=== PATIENT | male | born 1980 | race Caucasian/White ===

== ENCOUNTER 2023-09-24 02:36 | Inpatient (IN) | payer OTHER, SELFPAY ==
[2023-09-23 23:08] VITALS: BP 109/67
[2023-09-23 23:28] VITALS: BMI 19.6
[2023-09-23 23:38] VITALS: BP 109/65
[2023-09-23] MEDS: NSS 1000 IV (23:51)
[2023-09-23 23:52] VITALS: BP 106/65
[2023-09-23 23:55] LABS: % Basophils 0.3 % (0-2); % Eosinophils 0.4 % (0-6); % Immature Granulocytes 0.9 % (0-0.5); % Lymphocytes 9.4 % (20.5-51.1); % Monocytes 3.5 % (1.7-9.3); % Neutrophils 85.5 % (42.2-75.2); Absolute Eosinophils 0.1 10^3/uL (0-0.7); Absolute Immature Granulocytes 0.1 10^3/uL (0-0.05); Absolute Lymphocytes 1.3 10^3/uL (1.2-3.4); Absolute Monocytes 0.5 10^3/uL (0.1-0.6); Absolute Neutrophils 11.8 10^3/uL (1.4-6.5); Hematocrit 31.6 % (39.0-52.0); Hemoglobin 10.7 g/dL (13.0-18.0); Mean Corp Hgb Conc. 33.9 g/dL (33.0-37.0); Mean Corpuscular Hgb 25.1 pg (27.0-31.0); Mean Corpuscular Volume 74.2 fL (80.0-94.0); Mean Platelet Volume 9.5 fL (7.4-10.4); Nucleated Red Blood Cells % 0 % (-); Platelet Count 184 10^3/uL (130-400); Red Blood Cell Count 4.26 10^6/uL (4.70-6.10); Red Cell Dist. Width 16.3 % (11.5-14.5); White Blood Cell Count 13.8 10^3/uL (4.8-10.8)
[2023-09-24] VITALS (11 sets, daily range): BP systolic 100–117; BP diastolic 56–72; BMI 19.8
--- NOTE | 2023-09-24 | ED.GENMED ---
History of Present Illness
General
Chief Complaint: Skin Problem
Source: patient
Exam Limitations: none
Time Seen by Provider: 09/23/23 23:22
Travel History
Have you had any contact with someone who has COVID-19?: No
Do you have any symptoms of coronavirus? Fever > 100 degrees, chills, cough, shortness of breath, sore throat, loss of taste or smell, muscle aches, or headache?: No
History of Present Illness
History of Present Illness:
This is a 43 year old male that comes in with c/o left leg infection. States that he started with redness on the left lower leg and this has increased. States that this started about 10 days ago. States that he thinks he had a fever in alf.
States that he had some chest pain, occasional SOB. abd pain, nausea, vomiting, diarrhea, headache, dizziness, urinary burning. Denies any chills.
Past History
Past History
ED Past Medical History: Other (Fentanyl abuse)
ED Past Surgical History: None
Social History
Tobacco: Former smoker
Alcohol: None
Drug: IVDA and Other (Snorting)
Personal: Single
Living: alf
Review of Systems
Review of Systems
All Other Systems: ROS reviewed and negative except as documented in HPI and ROS
Constitutional: Reports fever (QUESTIONABLE UNABLE to take temp); Denies chills
EENT: Reports no symptoms
Respiratory: Reports trouble breathing (occasionally); Denies cough
Cardiac: Reports chest pain
ABD/GI: Reports abdominal pain, nausea, vomiting and diarrhea
: Reports dysuria; Denies frequency or urgency
Musculoskeletal: Reports other (Left leg pain)
Skin: Reports other (Redness of the left leg)
Neurological: Reports dizzy and headache
Psychiatric: Reports no symptoms
Phy Exam
General Physical Exam
General Presentation: no apparent distress
General age: appears stated age
General Skin: warm and dry
General Habitus: normal
General Mental: alert
General Hydration: appears well hydrated
ENT Exam
ENT Exam: TM's normal, pharynx normal and neck supple
Eye Exam
Eye Exam: EOMI
Cardiovascular Exam
Cardiovascular Exam: regular rate/rhythm, no murmur and normal peripheral pulses
Pulmonary Exam
Pulmonary Exam: lungs clear, no respiratory distress, no rales, chest non tender, no crackles, no rhonchi, no wheezing and no cough
Gastrointestinal Exam
Gastrointestinal Exam: normal bowel sounds, soft, no organomegaly, no pulsatile mass, non distended and tender (Generalized tenderness with palpation)
Musculoskeletal Exam
Musculoskeletal Exam: full ROM and edema (of the left leg)
Skin Exam
Skin Exam: normal color, warm/dry, no petechia and other (Open sores on the left lower let at different stages of healing. Redness on the left lower leg with increased warmth, Up to the knee with posterior redness and red streak on the medial aspect
of the thigh. )
Psychiatric Exam
Psychiatric Exam: normal mood/affect
Course
Orders/Labs/Results
Orders:
Orders
09/23/23 23:17
Cardiac Monitoring- Treatment ONCE
IV Insert/Care/Rem.- Treatment PRN
09/23/23 23:33
Complete Blood Count/With Diff Urgent
Comprehensive Metabolic Panel Urgent
Lactic Acid Q4H
Comment: ON ICE, CANCEL 2ND ORDER IF FIRST LACTIC ACID LEVEL <2
Blood Culture Q30M
VIJAY Source: Blood/Venous
Specimen Description:
Comment: FROM 2 SEPARATE SITES
09/23/23 23:48
0.9% Sodium Chloride 1000 ml [Nss] 1,000 ml IV BOLUS
09/24/23 00:00
US Periph Venous LOWER Ext LT Urgent
Comment:
Reason For Exam: Swellig pain
09/24/23 00:01
Piperacillin/Tazo 3.375 Gram [Zosyn] 3.375 gram in 50 ml IV NOW
Vancomycin 1 Gram/200 ml [Vancocin] 1 gram in 200 ml IV NOW
09/24/23 00:03
Electrocardiogram (*1) Urgent
Reason for Study: Chest Pain
EKG- Treatment ONCE
Urinalysis Reflex To Culture Urgent
Pantoprazole [Protonix IV] 40 mg IV NOW STA
09/24/23 00:55
Urine Osmolality Random [Osmolality, Random Urine] Urgent
Urine Sodium Urgent
09/24/23 00:56
Troponin I Urgent
Blood Culture Q30M
VIJAY Source: Blood/Venous
Specimen Description:
Comment: FROM 2 SEPARATE SITES
09/24/23 01:08
Admit/Transfer Patient As Directed
Co-Sign Provider:
Level of Care: Inpatient admission
Assign to:: Medical/Surgical
Physician / Group: Regan
Diagnosis: Cellulitis, Hyponatremia
Reason for Hospitalization: Cellulitis, Hyponatremia
Expected length of stay greater than two midnights?: Yes
ELOS- Estimated Length of Stay in days: 2
I certify the patient meets the requirements for IP care: Yes
09/24/23 01:09
Code Status As Directed
Resuscitation Status: Full Code
09/24/23 01:21
CXR2 [CR Chest - 2 Views ] Urgent
Comment:
Reason For Exam: Abnormal lung sounds
09/24/23 01:38
MRSA Screen Routine
VIJAY Source: Nose
Specimen Description:
09/24/23 03:30
Lactic Acid Q4H
Comment: ON ICE, CANCEL 2ND ORDER IF FIRST LACTIC ACID LEVEL <2
Abnormal Lab Results
09/23/23
23:33
WBC 13.8 H 10^3/uL
(4.8-10.8)
RBC 4.26 L 10^6/uL
(4.70-6.10)
Hgb 10.7 L g/dL
(13.0-18.0)
Hct 31.6 L %
(39.0-52.0)
MCV 74.2 L fL
(80.0-94.0)
MCH 25.1 L pg
(27.0-31.0)
RDW 16.3 H %
(11.5-14.5)
Abs Immat Gran (auto) 0.1 H 10^3/uL
(0-0.05)
Absolute Neuts (auto) 11.8 H 10^3/uL
(1.4-6.5)
Immature Gran % 0.9 H %
(0-0.5)
Neutrophils % 85.5 H %
(42.2-75.2)
Lymphocytes % 9.4 L %
(20.5-51.1)
Sodium 125 L mmol/L
(135-145)
Chloride 93 L mmol/L
(98-107)
BUN 23 H mg/dl
(9-20)
Glucose 114 H mg/dl
(70-99)
AST 66 H U/L
(17-59)
ALT 75 H U/L
(0-50)
Albumin 3.4 L g/dl
(3.5-5.0)
09/23/23 23:33
09/23/23 23:33
Leukocytosis, H/H low, Anemia, Hyponatremia, chloride low. Dehydration. Glucose nonfasting. AST/ALT elevation. lactic acid 1.8, Troponin <0.012.
Vital Signs
Initial and Last Documented VS:
Initial Vital Signs
Temp Pulse Resp BP
98.5 F 85 16 109/67
09/23/23 23:08 09/23/23 23:08 09/23/23 23:08 09/23/23 23:08
Last Documented Vital Signs
Temp Pulse Resp BP Pulse Ox
98.5 F 91 19 117/64 100
09/23/23 23:08 09/24/23 01:30 09/24/23 01:30 09/24/23 01:30 09/23/23 23:52
MDM/Problems Addressed
Differential Diagnosis Includes:
Cellulitis, DVT
MDM/Problems Addressed:
This is a 43 year old male that comes in with c/o left leg pain. States that he started about redness of the left leg that has gotten worse.
Will get labs US and explained that he needed to be admitted. Hospitalist notified.
Chronic conditions affecting care:
IV drug use,
Acute Exacerbation and/or Progression of Chronic Illness:
NA
*Radiology
Radiology exam reviewed: preliminary read by ED provider (Chest- negative for active disease) and other (US- Negative for DVT)
*Pulse Oximetry
Patient hypoxic: no
*EKG
Interpreted by ED Provider?: Yes
Heart Rate: 84
Rate: normal
Rhythm: sinus
[place]: normal axis
Interval: normal interval
QRS Pattern: normal QRS
Ischemia: no ischemia
*Automatic Quilling Machine Operator Interpretation
Rate: normal
Heart Rate: 83
*Critical Care Note
Total Time (30-74mins, 75-104mins- exclusive of procedures): Not Applicable
ED Attending Note
-
Portions of this chart may have been created with voice recognition software.� Occasional wrong word or��sound alike� substitutions may have occurred due to the inherent limitations of voice recognition software.
Discharge Plan
Departure
Patient Disposition: Admit
Date of Disposition: 09/24/23
Time of Disposition: 00:18
Admit to: Med/Surg
Presentation/result/management discussed w/ accepting MD/DO: Hospitalist
Patient with high blood pressure during this ER visit?: No
Condition: Good
Discharge Problem:
Cellulitis of left leg, Acute hyponatremia
Interventions
Interventions:
*Risk Screen - Suicide Last Done: 09/23/23 23:08
*General Assessment Last Done: 09/23/23 23:08
*Neglect/Abuse Screening Last Done: 09/23/23 23:08
ED- Fall Risk Assessment Last Done: 09/23/23 23:08
*ED COVID-19 Vaccine History Last Done: 09/23/23 23:08
ED-Skin Assessment Last Done: 09/23/23 23:30
[2023-09-24 00:01] LABS: Lactic Acid 1.8 mmol/L (0.7-2.0)
[2023-09-24 00:02] LABS: ALT (SGPT) 75 U/L (0-50); AST (SGOT) 66 U/L (17-59); Albumin 3.4 g/dl (3.5-5.0); Alkaline Phosphatase 116 U/L (38-126); Blood Urea Nitrogen 23 mg/dl (9-20); Calcium 8.4 mg/dl (8.4-10.2); Carbon Dioxide 22 mmol/L (22-30); Chloride 93 mmol/L (98-107); Estimated Creatinine Clearance 110 ml/min; Glucose 114 mg/dl (70-99); Potassium 3.6 mmol/L (3.5-5.1); Sodium 125 mmol/L (135-145); Total Bilirubin 0.7 mg/dl (0.2-1.3); Total Protein 7.6 g/dl (6.3-8.2); eGFR > 60.00
[2023-09-24] MEDS: ZOSYN 50 IV (00:58)
[2023-09-24] MEDS: PROTONIX IV 40 MG IV (01:01)
--- NOTE | 2023-09-24 01:16 | HPS.HSE ---
Family Physician
-
Family Physician: [facility]
Chief Complaint
-
LLE pain, swelling, redness.
History of Present Illness
Patient is a 43y M with PMH significant for substance abuse who presents to ED complaining of LLE pain, swelling and redness. Patient states that symptoms have been present for about 2 weeks and have been steadily worsening in that time. he is
currently incarcerated and was brought to the ED this evening for further evaluation. Patient states that he has had intermittent fevers / chills, N/V/D, diaphoresis, etc. He has a history of IVDA, but denies injecting into the LLE.
He denies any known history of MRSA infection.
Patient denies any other known chronic health issues.
Medical History
Past Medical History
Past Medical History: Reports Other
Additional Past Medical History:
Substance Abuse
Past Surgical History: Reports None and Other
Social History
Tobacco: Smoker (/ ppd. Approx 10 pack years total use.)
Alcohol: None
Drug: IVDA (Last IV use was about 30 days ago. UE injections. No LLE injections.) and Other (Last use overall was nasal fentanyl about 2 weeks ago.)
Living: Assisted
Family History
Family History: Not pertinent
Allergies / Home Medications
Allergies reflects when Allergies were last updated in [facility].
Home Medications with original date entered in [facility]
Allergy/Medication List:
Allergies
Allergy/AdvReac Type Severity Reaction Status Date / Time
No Known Allergies Allergy Unverified 09/23/23 22:58
Home Medications
buprenorphine 8 mg-naloxone 2 mg sublingual tablet 2 tab sublingual DAILY 09/23/23
Review of Systems
-
History Source: Patient
A 12 point ROS was completed and negative except as noted: Yes
Constitutional: Reports Fever, Fatigue and Chills
EENT: Denies Sore Throat
Respiratory: Denies Cough or Trouble Breathing
Cardiac: Denies Chest Pain or Palpitations
Abdomen/GI: Reports Nausea, Vomiting and Diarrhea; Denies Abdominal Pain
: Denies Dysuria or Frequency
Musculoskeletal: Reports Joint Pain, Joint Swelling and Edema
Skin: Reports Other (Redness / Pain)
Neurological: Denies Dizzy or Headache
Psych: Denies Depression or Anxiety
Physical Exam
Vital Signs
Vital Signs
Temp Pulse Resp BP Pulse Ox
98.5 F 85 16 109/67 100
09/23/23 23:08 09/23/23 23:08 09/23/23 23:08 09/23/23 23:08 09/23/23 23:28
Physical Exam
General: Other (43y M in no acute distress. Appears older than stated age.)
HEENT: Moist mucous membranes and Other (Poor dentition.)
Respiratory: Other (Few bibasilar rales.)
Cardiac: S1/S2, Regular Rhythm and Murmur (II/ OMA)
GI: Soft, Non Tender, Non Distended and Normal Bowel Sounds
Musculoskeletal: Other (Erythema, induration, increased warmth and tenderness LLE circumferential around lower leg wth lymphangitis into the L thigh / groin. No evident abscess / fluctuance.)
Skin: Other (Scattered crusted lesions. Small, tender abscess R lateral / proximal thigh without bleeding or discharge.)
Neuro: AO x 3
Laboratory Results
-
09/23/23 23:33
09/23/23 23:33
Laboratory Results
Lactic Acid 1.8 mmol/L (0.7-2.0) 09/23/23 23:33
Total Bilirubin 0.7 mg/dl (0.2-1.3) 09/23/23 23:33
AST 66 U/L (17-59) H 09/23/23 23:33
ALT 75 U/L (0-50) H 09/23/23 23:33
Alkaline Phosphatase 116 U/L (38-126) 09/23/23 23:33
Impression/Plan
-
A/P: Patient is a 43y M with PMH significant for substance abuse who presents to ED complaining of LLE pain, swelling and redness for 2 weeks.
LLE Cellulitis
- Admit for further evaluation and treatment.
- Confluent erythema with induration, warmth and lymphangitis without discrete collection / abscess.
- IV abx with Vanco given IVDA / MRSA risks.
- Check MRSA swab.
- Follow for clinical improvement.
- Encourage avoidance of IVDA in the future.
Hyponatremia
- ? etiology. No prior values to compare, so cannot comment on acuity.
- Check urine studies, CXR, TFTs, etc.
- Fluid restriction for now and follow for changes.
- Consider Nephrology evaluation if Na levels decrease or do not improve.
- Patient with no evident symptoms of hyponatremia at this time.
Microcytic Anemia
- ? chronicity. Patient denies any known health issues.
- Check iron studies.
- No noted bleeding / etc.
Substance Abuse Disorder
- Last drug use was intranasal fentanyl about 2 weeks ago.
- Last IVDA was about 30 days ago per patient.
- Continue buprenorphine.
- Encourage continued efforts at abstinence.
DVT Prophylaxis: Lovenox
Code Status: Full
[2023-09-24 01:33] LABS: Troponin I < 0.012 ng/ml
[2023-09-24] MEDS: VANCOCIN 200 IV (01:33)
[2023-09-24] MEDS: TYLENOL 650 MG PO (05:27)
[2023-09-24 05:46] LABS: Urine Albumin Trace (Neg - Trace); Urine Bilirubin 1+ (Negative); Urine Character Clear (Clear); Urine Color Amber; Urine Glucose Negative (Negative); Urine Ketone Negative (Negative); Urine Leukocyte Trace (Negative); Urine Nitrite Negative (Negative); Urine Occult Blood 2+ (Negative); Urine Urobilinogen 4+ (Neg - 1+)
[2023-09-24 05:55] LABS: Osmolality Urine 852 mOsm/kg (300-900)
--- NOTE | 2023-09-24 05:55 | PTCARENOTE ---
Received pt from ED RN. Pt walked from the stretcher to our bed. Pt is AAOx3. HR normal, LLE edema. On RA O2 sat 97%, lungs clear. Pt uses the urinal, abd round. R hip abscess, LLE cellulitis red, inflamed, swollen and crusted lesions. Pt c/o 01/23
pain, PRN pain med given (see MAR). CHG bath provided.
[2023-09-24 06:01] LABS: Urine Bacteria Moderate (Negative); Urine Red Blood Cell 0-2 /HPF (0-2); Urine Sodium 26 mmol/L (30-90); Urine Squamous Cell 0-2 /LPF (Few)
[2023-09-24 06:33] LABS: Hematocrit 28.8 % (39.0-52.0); Hemoglobin 9.3 g/dL (13.0-18.0); Mean Corp Hgb Conc. 32.3 g/dL (33.0-37.0); Mean Corpuscular Hgb 24.6 pg (27.0-31.0); Mean Corpuscular Volume 76.2 fL (80.0-94.0); Mean Platelet Volume 9.5 fL (7.4-10.4); Platelet Count 147 10^3/uL (130-400); Red Blood Cell Count 3.78 10^6/uL (4.70-6.10); Red Cell Dist. Width 16.2 % (11.5-14.5); White Blood Cell Count 9.4 10^3/uL (4.8-10.8)
[2023-09-24 07:01] LABS: Blood Urea Nitrogen 16 mg/dl (9-20); Calcium 7.6 mg/dl (8.4-10.2); Carbon Dioxide 20 mmol/L (22-30); Chloride 97 mmol/L (98-107); Estimated Creatinine Clearance > 125 ml/min; Glucose 106 mg/dl (70-99); Iron 27 ug/dl (49-181); Potassium 3.8 mmol/L (3.5-5.1); Sodium 122 mmol/L (135-145); eGFR > 60.00
[2023-09-24 07:10] LABS: Percent Saturation 10 % (20-50); Total Iron Binding Capacity 267 ug/dl (261-462)
[2023-09-24 07:25] LABS: Cortisol, Random 21.3 ug/dl; TSH Reflex To Free T4 2.75 uIU/ml (0.47-4.68)
[2023-09-24] MEDS: SUBUTEX 16 MG SL (07:37)
--- NOTE | 2023-09-24 09:16 | PHA.VAN.IN ---
Assessment
- Assessment
Renal Function: Appears similar to baseline
AUC Dosing Plan
- Dosing Variables
Dosing Weight (kg): 68.4
Dosing CrCl (ml/min): 125
Vd coefficient (L/kg): 0.7
Utilized IBW given BMI < 20
Additionally, patient may have enhanced clearance due to HEVER
- Empiric Dosing
Initial / Loading Dose: 1000mg - 09/23 01:33
Maintenance Regimen: Vanc 1250mg Q12H - first dose now since did not receive full load then 1800
Estimated AUC (mcg*h/mL): 522
Estimated Peak (mcg*h/mL): 35.9
Estimated Trough (mcg/ml): 11.5
Estimated Half Life (H): 6.4
- Monitoring
No levels ordered at this time: consider levels in next few days
Pharmacokinetics Vancomycin I
- -
Patient Age: 43
Patient Sex: Male
Vancomycin Day #: 1
Indication: Skin And Soft Tissue
Requesting Provider: Dr. Spears
Pertinent Antimicrobial Allergies:
NKDA
Height / Weight:
Height 5 ft 8 in
Actual Weight 59.1 kg
IBW in k.4
Pertinent Past Medical History: BMI ~19.8, HEVER
- Vital Signs / Lab Results
Temp Pulse Resp BP Pulse Ox
99.9 F 90 16 115/72 97
09/24/23 05:11 09/24/23 05:11 09/24/23 05:11 09/24/23 05:11 09/24/23 05:47
Lab Results - Hematology
09/23/23 09/24/23 09/24/23
23:33 05:37 06:12
WBC 13.8 H Cancelled 9.4
Lab Results - Chemistry
09/23/23 09/24/23 09/24/23
23:33 05:37 06:12
BUN 23 H Cancelled 16
Creatinine 0.7 Cancelled 0.6 L
Estimated Creat Clear 110 Cancelled > 125
Albumin 3.4 L
09/23/23 09/24/23
23:33 03:30
Lactic Acid 1.8 Cancelled
Lab Results - Urine
09/24/23
05:30
Urine Nitrite (Reflex) Negative
Leukocyte Esterase Rfl Trace A
Urine WBC (Reflex) 3-5
Ur Squamous Epith Cells 0-2
Urine Bacteria (Reflex) Moderate A
--- NOTE | 2023-09-24 09:54 | WOUNDNOTE ---
Radha CUEVAS (LOWER)
--- NOTE | 2023-09-24 09:54 | WOUNDNOTE ---
LLE (LATERAL)(with photo flash)
--- NOTE | 2023-09-24 09:54 | WOUNDNOTE ---
JAYLAN (L MEDIAL, R LATERAL)
--- NOTE | 2023-09-24 09:55 | WOUNDNOTE ---
[facility] RN note: Patient admitted with LLE cellulitis, hyponatremia, R hip abscess? Patient currently at [facility] with guards present.
See H&P for complete history.
PMH: IVDA, denies injections in leg, last IV use 30 days ago, recent nasal Fentanyl about 2 weeks ago.
Wound Location and type/assessment: Patient admitted with: L anterior calf scattered superficial ulcers, pink and scabbed, scant serous drainage. 2 pustules R lower white. R hip draining abscess about 2cm induration and erythema around open abscess.
Expressed moderate purulent drainage. Wound culture taken and left at bedside if physician wants wound culture.
Appetite: on regular diet.
Pressure redistribution devices in place: Centrella Max air bed.
Plan:
Will confirm orders with hospitalist and update nurse.
Updated care plan and will follow as needed.
Note to case management of equipment requested for discharge:
Recommend follow up at wound care center upon discharge.
[2023-09-24] MEDS: VANCOCIN 275 MG IV ×2 (10:06→17:30)
--- NOTE | 2023-09-24 10:12 | WOUNDNOTE ---
[facility] RN note: Patient admitted with LLE cellulitis, hyponatremia, R hip abscess? Patient currently at [facility] with guards present.
See H&P for complete history.
PMH: IVDA, denies injections in leg, last IV use 30 days ago, recent nasal Fentanyl about 2 weeks ago.
Wound Location and type/assessment: Patient admitted with: L anterior calf scattered superficial ulcers, pink and scabbed, scant serous drainage. +diffuses erythema and edema LLE. LLE tender mostly during ambulation. 2 pustules R lower white.
+Palpable pedal pulses. R hip draining abscess about 2cm induration and erythema around open abscess. Moderate purulent drainage. Wound culture taken and left at bedside if physician wants wound culture.
Appetite: on regular diet.
Pressure redistribution devices in place: Centrella Max air bed. Patient moves self and can ambulate.
Plan: Dr. Pastor was in just after visit who evaluate patient and his R hip. Dressings applied by ELIU Barreto. Heels off bed with pillow.
Updated and confirmed orders with Dr. Pastor and updated ELIU Garvin.
Care plan to be updated and will follow as needed.
--- NOTE | 2023-09-24 11:38 | W.CON.NEPH ---
Consultation
-
Date/Time Consultation Requested: 09/24/23 0830
Date/Time Consultation Performed: 09/24/23 1030
Requesting Provider: Micheal Sanchez
Performing Provider: Nalini Omalley
Reason for Consultation: HYpoantremia
Medical History
-
Chief Complaint: left leg cellulitis
History of Present Illness:
Patient is a 43y M with PMH significant for substance abuse who presents to ED complaining of LLE pain, swelling and redness on 09/22. Patient states that symptoms have been present for about 2 weeks and have been steadily worsening in that time.
he is currently incarcerated in residential. Patient states that he has had intermittent fevers / chills, N/V/D, diaphoresis, etc. He has a history of IVDA, but denies injecting into the LLE. He lately has done Fentanyl nasally, last done 2 weeks ago.
He reports possible h/o hyponatremia in the past. But does not recall details. He does not follow fluid restriction and was not eating well in residential. No CP or sob. No n/v or abd pain. No diarrhea. Sodium on admit noted 125 s/p NS in ER, repeat this
was at 122 hence nephrology asked to assist.
Past Medical History
POssible hyponatremia-chronic
Substance abuse
Past Surgical History: None
Social History
1/2 PPD, for apx 10 yrs
Alcohol: None
Drug: IVDA (Last IV use was about 30 days ago. UE injections. No LLE injections, Last use overall was nasal fentanyl about 2 weeks ago)
Living: Longterm
Family History
Family History: Not Pertinent
Allergies / Home Medications
Allergy/AdvReac Type Severity Reaction Status Date / Time
No Known Allergies Allergy Unverified 09/23/23 22:58
�Medication �Instructions �Recorded �Confirmed �Type
buprenorphine 8 mg-naloxone 2 mg 2 tab sublingual DAILY 09/23/23 09/23/23 History
sublingual tablet
Review of Systems
-
All complete 12 point ROS have been inquired and found negative other than stated in HPI
Physical Exam
Vital Signs
Vital Signs
Temp Pulse Resp BP Pulse Ox
98.7 F 90 16 115/72 95
09/24/23 07:45 09/24/23 05:11 09/24/23 05:11 09/24/23 05:11 09/24/23 08:00
Lab Results
WBC 9.4 10^3/uL (4.8-10.8) 09/24/23 06:12
RBC 3.78 10^6/uL (4.70-6.10) L 09/24/23 06:12
Hgb 9.3 g/dL (13.0-18.0) L 09/24/23 06:12
Hct 28.8 % (39.0-52.0) L 09/24/23 06:12
Plt Count 147 10^3/uL (130-400) D 09/24/23 06:12
Sodium 122 mmol/L (135-145) L 09/24/23 06:12
Potassium 3.8 mmol/L (3.5-5.1) 09/24/23 06:12
Chloride 97 mmol/L (98-107) L 09/24/23 06:12
Carbon Dioxide 20 mmol/L (22-30) L 09/24/23 06:12
BUN 16 mg/dl (9-20) 09/24/23 06:12
Creatinine 0.6 mg/dL (0.7-1.3) L 09/24/23 06:12
eGFR > 60.00 09/24/23 06:12
Glucose 106 mg/dl (70-99) H 09/24/23 06:12
Calcium 7.6 mg/dl (8.4-10.2) L 09/24/23 06:12
Albumin 3.4 g/dl (3.5-5.0) L 09/23/23 23:33
CXR negative
U somo 852, U na 26
Physical Exam
General: Awake, Alert, Oriented, AOx3, No Distress and Nontoxic
HEENT: EOMI and Anicteric
Respiratory: Clear, Normal Excursion and Nonlabored Respirations
Cardiac: S1/S2 and Regular Rate/Rhythm
Abdomen: Soft, Nontender and Nondistended
Musculoskeletal: No Cyanosis and Other (left leg in bandage-edema noted of left leg)
Skin: No Rash and Other (multiple scars noted in bilat arms from previous IVDA, also scab noted on left thumb, small ones in fingers of right hand )
Neuro: Nonfocal/Grossly Intact
Psych: Mood/afflect pleasant, Insight/judgement good and Appropriate
Assessment/Plan
-
IMP:
Sepsis likely secondary to LLE Cellulitis
Systolic murmur
Hyponatremia
Elevated LFT
Microcytic Anemia
Substance Abuse Disorder
mild hypocalcemia
PLan:
A/w left LE cellulitis with h/o drug use
Acute on chr Hyponatremia-suspect SIADH from left leg pain
U osmo high at 852, U na 26 suggest poor solute intake
sodium decreased with NS
he seem euvolemic with low BMI
will start 3% saline and repeat king today
may need to use samsca later
FR 40 pounces/day , TSH and cortisol were ok
BP stable with out meds
agree with echo, await for bld cx
Fe def anemia -chronic in nature, IV Fe course if no bacteremia
mild hypocalcemia-check vit D
abx per primary
d/w pt
Data Reviewed
-
Radiology: Report Reviewed by me
Labs: Labs Reviewed by me and Discussed with Patient
--- NOTE | 2023-09-24 12:25 | W.PN.HOSP.TC ---
Today's Communication/Plan
-
Monitor vital signs and see plan
Check urine and serum studies
Check echo
Blood culture pending
Continue with antibiotics
ID and nephrology to evaluate
Nonbillable note
Assessment / Plan
Assessment / Plan
General: No acute distress
HEENT: Moist mucous membranes and Other (Poor dentition.)
Respiratory: Clear to auscultation, no wheeze
Cardiac: S1/S2, Regular Rhythm and Murmur (II/ OMA)
GI: Soft, Non Tender, Non Distended and Normal Bowel Sounds
Musculoskeletal: Other (Erythema, induration, increased warmth and tenderness LLE circumferential around lower leg wth lymphangitis into the L thigh / groin. No evident abscess / fluctuance.)
Skin: Other ( Small, tender abscess R lateral / proximal thigh without bleeding or discharge.)
Neuro: AO x 3
Sepsis likely secondary to LLE Cellulitis
- Confluent erythema with induration, warmth and lymphangitis without discrete collection / abscess.
- IV abx with Vanco given IVDA
ID evaluation
Also has some right proximal thigh possible small abscess, appears to be draining on its own. cx purulent discharge. apply warm compresses; if looks worse or not improving then will get surgical evaluation
- Encourage avoidance of IVDA in the future.
bcx pending
Systolic murmur; unclear if new or old
given hx of IVDU; will check echo
Hyponatremia
- ? etiology. No prior values to compare, so cannot comment on acuity.
check urine and serum studies
Na now 122; consult nephrology
- Fluid restriction for now and follow for changes.
- Patient with no evident symptoms of hyponatremia at this time.
Elevated LFT
Monitor
Microcytic Anemia
- ? chronicity. Patient denies any known health issues.
- No noted bleeding / etc.
Substance Abuse Disorder
- Last drug use was intranasal fentanyl about 2 weeks ago.
- Last IVDA was about 30 days ago per patient.
- Continue buprenorphine.
- Encourage continued efforts at abstinence.
DVT Prophylaxis: Lovenox
Code Status: Full
Anticipated Discharge: > 48 hours
Subjective/Interval History
-
Date of Service: September 24, 2023
denies pain
Objective Data
-
Labs:
Laboratory Results
09/24/23 09/24/23
05:37 06:12
WBC Cancelled 9.4
Hgb Cancelled 9.3 L
Hct Cancelled 28.8 L
Plt Count Cancelled 147 D
Sodium Cancelled 122 L
Potassium Cancelled 3.8
Chloride Cancelled 97 L
Carbon Dioxide Cancelled 20 L
BUN Cancelled 16
Creatinine Cancelled 0.6 L
Glucose Cancelled 106 H
Calcium Cancelled 7.6 L
Vital Signs:
Vital Signs
Temp Pulse Resp BP Pulse Ox
98.7 F 90 16 115/72 95
09/24/23 07:45 09/24/23 05:11 09/24/23 05:11 09/24/23 05:11 09/24/23 08:00
I&O
09/23/23 09/24/23 09/25/23
06:59 06:59 06:59
Intake Total 410 / 410
Output Total 500 / 500
Balance -90 / -90
[2023-09-24 13:46] LABS: Osmolality Serum 268 mOsm/kg (275-300); Osmolality Urine 761 mOsm/kg (300-900)
[2023-09-24 13:54] LABS: Urine Sodium 29 mmol/L (30-90)
[2023-09-24] MEDS: SODIUM CHLORIDE 3% 250 IV (14:36)
--- NOTE | 2023-09-24 15:22 | CON.ID ---
Consultation
-
Date/Time Consultation Requested: 09/24/23 12:31
Date/Time Consultation Performed: 09/24/23 15:22
Requesting Provider: Dr Pastor
Performing Provider: Dr Mckeon
Reason for Consultation: LLE pain, swelling, redness.
Chief Complaint / Past History
Chief Complaint
wound infection, IVDU
History of Present Illness
Mr Rashid is a 43 year old male with past medical history notable for polysubstance abuse, last IVDU 30 days ago typically injects into the upper extremities who presented here today for fevers, chills, nausea, vomiting, diarrhea, sweating and very
superficial lower extremity wounds/excoriations. Symptoms have progressively worsened over about 2 weeks. He is currently incarcerated and was brought here.
Since arrival here he has been afebrile, bp stable, initially wbc count 13.8 now 9.4, hgb 9.3, plt 147, L shift is noted, eos were present, cr 0.6, na on arrival 125 today 122, has been hyperglycemic, lactic acid 1.8, t bili 0.7, ast 66, alt 75, UA
no pyuria, L lower extremity US: no dvt, CXR no active CP disease
Past History
Past Medical History: None
Past Surgical History: None
Allergy History:
No Known Allergies Allergy (Unverified 09/23/23 22:58)
Medications Reviewed: Yes
Social History
Tobacco: Smoker
Alcohol: None
Drug: IVDA
Family History
Family History: Not Pertinent
Review of Systems
Review of Systems
General: Fever and Chills
All systems: All other systems were reviewed and were negative
Vital Signs
Temp Pulse Resp BP Pulse Ox
98.7 F 90 16 115/72 95
09/24/23 07:45 09/24/23 05:11 09/24/23 05:11 09/24/23 05:11 09/24/23 08:00
Physical Exam
Physical Exam
Constitutional: No Acute Distress
Cardiovascular: Regular Rate and S1/S2; Negative Murmur or Rub
Pulmonary: Clear and Symmetric; Negative Wheezes, Rales or Rhonchi
Gastrointestinal: Soft, Non Tender, Non Distended and Normal Bowel Sounds
Skin: Warm and Dry; Negative Rash or Jaundice
Wound: Other (purulent cellulitis of very superificial wounds on the LLE, also mild cellulitis surrounding R thigh wound; lymphangitic streaking on the L)
Lines: PIV
Lab / Diagnostic Study Results
09/24/23 06:12
Abs Immat Gran (auto) 0.1 10^3/uL (0-0.05) H 09/23/23 23:33
Absolute Neuts (auto) 11.8 10^3/uL (1.4-6.5) H 09/23/23 23:33
Absolute Lymphs (auto) 1.3 10^3/uL (1.2-3.4) 09/23/23 23:33
Absolute Monos (auto) 0.5 10^3/uL (0.1-0.6) 09/23/23 23:33
Absolute Basos (auto) 0.0 10^3/uL (0-0.2) 09/23/23 23:33
Immature Gran % 0.9 % (0-0.5) H 09/23/23 23:33
Neutrophils % 85.5 % (42.2-75.2) H 09/23/23 23:33
Lymphocytes % 9.4 % (20.5-51.1) L 09/23/23 23:33
Monocytes % 3.5 % (1.7-9.3) 09/23/23 23:33
Eosinophils % 0.4 % (0-6) 09/23/23 23:33
Basophils % 0.3 % (0-2) 09/23/23 23:33
Lactic Acid Cancelled 09/24/23 03:30
Ur Squamous Epith Cells 0-2 /LPF (Few) 09/24/23 05:30
Microbiology Results
Micro:
09/24/23 10:28 Wound Culture - Pending
Abscess Gram Stain - Preliminary
09/24/23 05:30 Urine Culture - Pending
Urine
09/24/23 01:38 MRSA Screen - Pending
Nose
09/24/23 00:56 Blood Culture - Pending
Blood/Venous
09/23/23 23:33 Blood Culture - Pending
Blood/Venous
Assessment / Plan
Nonpurulent Cellulitis
Superficial Wounds
- no concern for osteomyelitis with these very superficial wounds
- blood cultures x2
- was able to express some puss - sent my own culture
- note previous wound culture with GPCs on gram stain
- agree with vancomycin
- consents to HIV screen, denies sharing needles
- the tragic thing about xylazine is that it seems to cause vasospasms and wounds even far distal to the injection site that cannot be healed while use is ongoing - explained clearly to patient. Also explained very high prevalence of xylazine in
our region (>90%) - no way to avoid it. Must stop using IV drugs or risk problems some say are worse than such as amputation, stroke etc. He expressed understanding and states he want to get into rehab.
Hyponatremia
- management per nephrology
[2023-09-24] MEDS: LOVENOX 40 MG SC (17:30)
[2023-09-24 17:34] LABS: Amphetamines Negative (Negative); Barbiturates Negative (Negative); Benzodiazepines Negative (Negative); Buprenorphine Positive (Negative); Cocaine Negative (Negative); Marijuana Negative (Negative); Methadone Negative (Negative); Methamphetamines Negative (Negative); Opiates Negative (Negative); Phencyclidine Negative (Negative); Tricyclic Antidepressants Negative (Negative)
[2023-09-24 17:55] LABS: Fentanyl, Urine Positive (Negative)
--- NOTE | 2023-09-24 18:09 | PTCARENOTE ---
Attempting to get 1700 lab work, pt hard stick
[2023-09-24 19:17] LABS: Sodium 124 mmol/L (135-145)
--- NOTE | 2023-09-24 22:26 | PTCARENOTE ---
Pt transferred to via wheelchair with belongings.
[2023-09-25] MEDS: VANCOCIN 275 MG IV ×2 (05:57→17:25)
[2023-09-25 06:06] LABS: % Basophils 0.6 % (0-2); % Eosinophils 0.4 % (0-6); % Immature Granulocytes 2.6 % (0-0.5); % Lymphocytes 22.9 % (20.5-51.1); % Neutrophils 66.5 % (42.2-75.2); Absolute Immature Granulocytes 0.1 10^3/uL (0-0.05); Absolute Lymphocytes 1.1 10^3/uL (1.2-3.4); Absolute Monocytes 0.4 10^3/uL (0.1-0.6); Absolute Neutrophils 3.3 10^3/uL (1.4-6.5); Hematocrit 26.9 % (39.0-52.0); Hemoglobin 8.8 g/dL (13.0-18.0); Mean Corp Hgb Conc. 32.7 g/dL (33.0-37.0); Mean Corpuscular Hgb 24.6 pg (27.0-31.0); Mean Corpuscular Volume 75.4 fL (80.0-94.0); Mean Platelet Volume 10.5 fL (7.4-10.4); Nucleated Red Blood Cells % 0 % (-); Platelet Count 141 10^3/uL (130-400); Red Blood Cell Count 3.57 10^6/uL (4.70-6.10); Red Cell Dist. Width 16.2 % (11.5-14.5)
[2023-09-25 06:43] LABS: ALT (SGPT) 81 U/L (0-50); AST (SGOT) 95 U/L (17-59); Albumin 2.6 g/dl (3.5-5.0); Alkaline Phosphatase 146 U/L (38-126); Blood Urea Nitrogen 13 mg/dl (9-20); Calcium 7.7 mg/dl (8.4-10.2); Carbon Dioxide 22 mmol/L (22-30); Chloride 99 mmol/L (98-107); Estimated Creatinine Clearance > 125 ml/min; Glucose 89 mg/dl (70-99); Potassium 3.7 mmol/L (3.5-5.1); Sodium 125 mmol/L (135-145); Total Bilirubin 0.4 mg/dl (0.2-1.3); Total Protein 6.2 g/dl (6.3-8.2); eGFR > 60.00
[2023-09-25 07:00] LABS: Vitamin D, 25-OH*** < 12.8 ng/mL (30-80)
[2023-09-25 07:25] VITALS: BP 111/70
--- NOTE | 2023-09-25 08:28 | PHA.VAN.FU ---
Vancomycin Assessment / Plan
- Assessment
Renal Function: Stable
WBC's are: WNL
In the past 24 hrs, patient has been: Afebrile
- Dosing Plan
Continue: Vanc 1250mg Q12H
- Monitoring Plan
No level(s) ordered at this time: will consider levels in next few days
- Follow Up
Pharmacy will continue to follow.
Vancomycin Follow UP
- -
Patient Age: 43
Patient Sex: Male
Vancomycin Day #: 2
Indication: Skin And Soft Tissue
Requesting Provider: Dr. Spears
Pertinent Antimicrobial Allergies:
NKDA
Height / Weight:
Height 5 ft 8 in
Actual Weight 59.1 kg
IBW in k.4
Pertinent Past Medical History: BMI ~19.8, HEVER
- Vital Signs / Lab Results
Temp Pulse Resp BP Pulse Ox
98.9 F 79 14 111/70 99
09/25/23 07:25 09/25/23 07:25 09/25/23 07:25 09/25/23 07:25 09/25/23 07:25
Lab Results - Hematology
09/23/23 09/24/23 09/24/23
23:33 05:37 06:12
WBC 13.8 H Cancelled 9.4
09/25/23
04:58
WBC 5.0
Lab Results - Chemistry
09/23/23 09/24/23 09/24/23
23:33 05:37 06:12
BUN 23 H Cancelled 16
Creatinine 0.7 Cancelled 0.6 L
Estimated Creat Clear 110 Cancelled > 125
Albumin 3.4 L
09/25/23
04:58
BUN 13
Creatinine 0.5 L
Estimated Creat Clear > 125
Albumin 2.6 L
09/23/23 09/24/23
23:33 03:30
Lactic Acid 1.8 Cancelled
Microbiology Results
09/24/23 00:56 Blood Culture - Preliminary
Blood/Venous No Growth in 24 hours- Final report to follow
09/23/23 23:33 Blood Culture - Preliminary
Blood/Venous No Growth in 24 hours- Final report to follow
09/24/23 15:53 Gram Stain - Preliminary
Leg - Left
09/24/23 10:28 Gram Stain - Preliminary
Abscess
[2023-09-25] MEDS: SUBUTEX 16 MG SL (08:34)
[2023-09-25 08:49] LABS: Glycohemoglobin (HgbA1c) 5.5 % (4.0-5.6)
[2023-09-25] MEDS: DRISDOL (VITAMIN D2) 50000 UNITS PO (10:02)
--- NOTE | 2023-09-25 11:21 | W.PN.HOSP.TC ---
Today's Communication/Plan
-
monitor vitals
see plan
cw abx
monitor sodium
replete vit D
Assessment / Plan
Assessment / Plan
General: No acute distress
HEENT: Moist mucous membranes and Other (Poor dentition.)
Respiratory: Clear to auscultation, no wheeze
Cardiac: S1/S2, Regular Rhythm and Murmur (II/ OMA)
GI: Soft, Non Tender, Non Distended and Normal Bowel Sounds
Musculoskeletal: Other (Erythema, induration, increased warmth and tenderness LLE circumferential around lower leg wth lymphangitis into the L thigh / groin. No evident abscess / fluctuance.)
Skin: Other ( Small, tender abscess R lateral / proximal thigh without bleeding or discharge.)
Neuro: AO x 3
Sepsis likely secondary to LLE Cellulitis
- Confluent erythema with induration, warmth and lymphangitis without discrete collection / abscess.
- IV abx with Vanco given IVDA
ID following
MRSA in nares
Also has some right proximal thigh possible small abscess, appears to be draining on its own. cx purulent discharge. wound cx with staph; apply warm compresses; if looks worse or not improving then will get surgical evaluation
- Encourage avoidance of IVDA in the future.
bcx NGTD
Systolic murmur; unclear if new or old
given hx of IVDU; echocardiogram without any vegetation
Hyponatremia
- ? etiology. No prior values to compare, so cannot comment on acuity.
check urine and serum studies
Na now 125; status post 3%/10. Nephrology following
- Fluid restriction for now and follow for changes.
Low vitamin D
Replete
Elevated LFT
Monitor
Denies any abdominal pain, if continues to get worse then will get ultrasound abdomen
Microcytic Anemia
- ? chronicity. Patient denies any known health issues.
- No noted bleeding / etc.
Appears anemia of chronic disease
Substance Abuse Disorder
- Last drug use was intranasal fentanyl about 2 weeks ago.
- Last IVDA was about 30 days ago per patient.
- Continue buprenorphine.
- Encourage continued efforts at abstinence.
UDS positive for buprenorphine, fentanyl
DVT Prophylaxis: Lovenox
Code Status: Full
Anticipated Discharge: 24 - 48 hours
Subjective/Interval History
-
Date of Service: September 25, 2023
denies pain
Objective Data
-
Labs:
Laboratory Results
09/25/23
04:58
WBC 5.0
Hgb 8.8 L
Hct 26.9 L
Plt Count 141
Sodium 125 L
Potassium 3.7
Chloride 99
Carbon Dioxide 22
BUN 13
Creatinine 0.5 L
Glucose 89
Calcium 7.7 L
Total Bilirubin 0.4
AST 95 H
ALT 81 H
Alkaline Phosphatase 146 H
Vital Signs:
Vital Signs
Temp Pulse Resp BP Pulse Ox
98.9 F 79 14 111/70 99
09/25/23 07:25 09/25/23 07:25 09/25/23 07:25 09/25/23 07:25 09/25/23 09:11
I&O
09/24/23 09/25/23 09/26/23
06:59 06:59 06:59
Intake Total 410 / 410 1300 / 1300
Output Total 500 / 500 1300 / 1300
Balance -90 / -90 0 / 0
--- NOTE | 2023-09-25 13:18 | CM ---
Reviewed the chart notes and spoke with the patient at the bedside. Two guards at the bedside. The patient is currently residing in the [facility]. The patient reports no DME/VN/SNF in the past. CM continues to be available to patient/family and is
monitoring medical plan for needs at discharge.
Plan: Discharge back to [facility] when medically stable. No needs anticipated.
Call report to: [phone].
--- NOTE | 2023-09-25 14:19 | W.PN.ID1 ---
Date of Service
Date of Service: September 25, 2023
Today's Communication
- continue with vancomycin, added clindamycin
Assessment / Plan
Nonpurulent Cellulitis
Superficial Wounds
IVDU
- no concern for osteomyelitis with these very superficial wounds
- blood cultures x2 in progress no growth to date
- wound culture x1: s aureus, wound culture x2: s pyogenes
- continue with vancomycin, added clindamycin
- consents to HIV screen, denies sharing needles - pending
- must stop using fentanyl - discussed at length with patient 09/23
Hyponatremia
- management per nephrology
Chief Complaint
-: Other (cellulitis)
Subjective / Review of Systems
afebrile
bp stable
without leukocytosis
cr stable
cultures back
Vital Signs / Physical Exam
Vital Signs
Vital Signs
Temp Pulse Resp BP Pulse Ox
98.9 F 79 14 111/70 99
09/25/23 07:25 09/25/23 07:25 09/25/23 07:25 09/25/23 07:25 09/25/23 09:11
Physical Exam
Constitutional: No Acute Distress
Cardiovascular: Regular Rate and S1/S2; Negative Murmur or Rub
Pulmonary: Clear and Symmetric; Negative Wheezes or Rales
Gastrointestinal: Soft, Non Tender, Non Distended and Normal Bowel Sounds
Extremities: Other (less erythema of both the left leg and around the wound on the R thigh)
Skin: Warm and Dry; Negative Rash or Jaundice
Objective Data
Lab Data
Lab Results
09/25/23 04:58
09/25/23 04:58
Estimated Creat Clear > 125 ml/min 09/25/23 04:58
Lactic Acid Cancelled 09/24/23 03:30
Total Bilirubin 0.4 mg/dl (0.2-1.3) 09/25/23 04:58
AST 95 U/L (17-59) H 09/25/23 04:58
ALT 81 U/L (0-50) H 09/25/23 04:58
Alkaline Phosphatase 146 U/L (38-126) H 09/25/23 04:58
Most recent labs reviewed.
Micro Results:
09/24/23 05:30 Urine Culture - Final
Urine NO GROWTH
09/24/23 15:53 Wound Culture - Preliminary
Leg - Left Streptococcus pyogenes
Gram Stain - Preliminary
09/24/23 10:28 Wound Culture - Preliminary
Abscess Staphylococcus aureus
Gram Stain - Preliminary
09/24/23 01:38 MRSA Screen - Final
Nose Staph aureus MRSA
09/24/23 00:56 Blood Culture - Preliminary
Blood/Venous No Growth in 24 hours- Final report to follow
09/23/23 23:33 Blood Culture - Preliminary
Blood/Venous No Growth in 24 hours- Final report to follow
--- NOTE | 2023-09-25 14:39 | W.PN.NEPH.PH ---
Today's Communication / Plan
-
samsca
Assessment/Plan
-
IMP:
Sepsis likely secondary to LLE Cellulitis
Systolic murmur
Hyponatremia
Elevated LFT
Microcytic Anemia
Substance Abuse Disorder
mild hypocalcemia
Vit D def
Hypoalbuminemia
PLan:
A/w left LE cellulitis with h/o drug use
Acute on chr Hyponatremia-suspect SIADH from left leg pain
U osmo high at 852, U na 26 suggest poor solute intake
mild improvement with 3% saline
will dose samsca today
FR 40 pounces/day , TSH and cortisol were ok
BP stable with out meds
Fe def anemia, hb decreasing -chronic in nature, IV Fe course if no bacteremia
mild hypocalcemia-vit D def-start D2
abx per primary and ID
d/w pt
-
-
Date of Service: September 25, 2023
CC / HPI / ROS
-
Chief Complaint:
hyponatremia
History of Present Illness:
sodium better at 125
BP stable, no fever
wound cx shows staph
echo normal
Review of Systems:
no cp or sob
no n/v, eating well
Labs
-
Labs:
WBC 5.0 10^3/uL (4.8-10.8) 09/25/23 04:58
RBC 3.57 10^6/uL (4.70-6.10) L 09/25/23 04:58
Hgb 8.8 g/dL (13.0-18.0) L 09/25/23 04:58
Hct 26.9 % (39.0-52.0) L 09/25/23 04:58
Plt Count 141 10^3/uL (130-400) 09/25/23 04:58
Sodium 125 mmol/L (135-145) L 09/25/23 04:58
Potassium 3.7 mmol/L (3.5-5.1) 09/25/23 04:58
Chloride 99 mmol/L (98-107) 09/25/23 04:58
Carbon Dioxide 22 mmol/L (22-30) 09/25/23 04:58
BUN 13 mg/dl (9-20) 09/25/23 04:58
Creatinine 0.5 mg/dL (0.7-1.3) L 09/25/23 04:58
eGFR > 60.00 09/25/23 04:58
Glucose 89 mg/dl (70-99) 09/25/23 04:58
Calcium 7.7 mg/dl (8.4-10.2) L 09/25/23 04:58
Albumin 2.6 g/dl (3.5-5.0) L 09/25/23 04:58
Physical Exam
-
Vital Signs:
Vital Signs
Temp Pulse Resp BP Pulse Ox
98.9 F 79 14 111/70 99
09/25/23 07:25 09/25/23 07:25 09/25/23 07:25 09/25/23 07:25 09/25/23 09:11
Cardiovascular:: Regular rate and rhythm
Respiratory:: Bilateral: CTA
Lung Excursion:: Normal
Abdomen:: Nontender and Soft
Extremity Edema:: +1: Left: and None: Right:
Cox Catheter: No
[2023-09-25] MEDS: SAMSCA 7.5 MG PO (15:27)
[2023-09-25 15:40] VITALS: BP 109/65
[2023-09-25] MEDS: CLEOCIN 450 MG PO ×2 (17:25→23:07)
[2023-09-25] MEDS: LOVENOX 40 MG SC (17:26)
[2023-09-25 22:44] LABS: HIV Combo Negative (Negative)
[2023-09-25 23:23] VITALS: BP 103/67
[2023-09-26] MEDS: CLEOCIN 450 MG PO ×4 (06:04→23:25)
[2023-09-26] MEDS: VANCOCIN 275 MG IV (06:04)
[2023-09-26 06:05] LABS: % Basophils 0.3 % (0-2); % Eosinophils 1.2 % (0-6); % Immature Granulocytes 0.6 % (0-0.5); % Lymphocytes 26.9 % (20.5-51.1); % Monocytes 7.9 % (1.7-9.3); % Neutrophils 63.1 % (42.2-75.2); Absolute Lymphocytes 0.9 10^3/uL (1.2-3.4); Absolute Monocytes 0.3 10^3/uL (0.1-0.6); Absolute Neutrophils 2.2 10^3/uL (1.4-6.5); Hematocrit 29.5 % (39.0-52.0); Hemoglobin 9.7 g/dL (13.0-18.0); Mean Corp Hgb Conc. 32.9 g/dL (33.0-37.0); Mean Corpuscular Hgb 25.1 pg (27.0-31.0); Mean Corpuscular Volume 76.2 fL (80.0-94.0); Mean Platelet Volume 9.7 fL (7.4-10.4); Nucleated Red Blood Cells % 0 % (-); Platelet Count 170 10^3/uL (130-400); Red Blood Cell Count 3.87 10^6/uL (4.70-6.10); Red Cell Dist. Width 16.5 % (11.5-14.5); White Blood Cell Count 3.4 10^3/uL (4.8-10.8)
[2023-09-26 06:36] LABS: ALT (SGPT) 109 U/L (0-50); AST (SGOT) 125 U/L (17-59); Albumin 2.9 g/dl (3.5-5.0); Alkaline Phosphatase 199 U/L (38-126); Blood Urea Nitrogen 13 mg/dl (9-20); Calcium 8.5 mg/dl (8.4-10.2); Carbon Dioxide 24 mmol/L (22-30); Chloride 110 mmol/L (98-107); Estimated Creatinine Clearance > 125 ml/min; Glucose 98 mg/dl (70-99); Sodium 139 mmol/L (135-145); Total Bilirubin 0.5 mg/dl (0.2-1.3); Total Protein 6.9 g/dl (6.3-8.2); eGFR > 60.00
[2023-09-26 06:43] LABS: Potassium 4.2 mmol/L (3.5-5.1)
[2023-09-26 07:21] VITALS: BP 109/67
[2023-09-26] MEDS: SUBUTEX 16 MG SL (08:21)
[2023-09-26] MEDS: D5W 1000 IV (10:11)
--- NOTE | 2023-09-26 11:49 | PN.CDI ---
CDI
- -
CDI:
Physician Documentation Request
Admit Date: 09/24/23 02:36
Dear Doctor Dawit,
Clinical Indicators:
Patient admitted with sepsis, likely secondary to LLE cellulitis.
09/24 PN, 'Substance Abuse Disorder - Last drug use was intranasal fentanyl about 2 weeks ago.'
Home medications include: Buprenorphine 8 mg-naloxone 2 mg sublingual tablet 2 tab sublingual DAILY
Based on the above, could you clarify in the progress notes, the appropriate diagnosis, if significant, that supports the above abnormalities and additional evaluation, monitoring and/or treatment rendered:
Opioid use disorder with dependence
Opioid use disorder only
Other,please specify
Use of terms such as suspected, likely, concern for, or probable (associated with a specific diagnosis that is being evaluated, monitored, or treated as if it exists) are acceptable and can be coded in the inpatient setting, when documented at the
time of discharge.
Thank you,
TASHIA Ayala RN
CDI Specialist
available via tiger text
Please use your independent medical judgment in providing your response.
--- NOTE | 2023-09-26 12:29 | W.PN.HOSP.TC ---
Addendum entered and electronically signed by Micheal Pastor MD 09/26/23 16:47:
Spoke with infectious disease and patient antibiotics has been transitioned to p.o. discharge today on p.o. antibiotics.
Addendum entered and electronically signed by Micheal Pastor MD 09/26/23 12:39:
Opioid use disorder with dependence
Original Note:
Today's Communication/Plan
-
Monitor vital signs see plan
Continue with antibiotics
Monitor sodium
Monitor LFTs
Assessment / Plan
Assessment / Plan
General: No acute distress
HEENT: Moist mucous membranes and Other (Poor dentition.)
Respiratory: Clear to auscultation, no wheeze
Cardiac: S1/S2, Regular Rhythm and Murmur (II/ OMA)
GI: Soft, Non Tender, Non Distended and Normal Bowel Sounds
Musculoskeletal: Other (Erythema, induration, increased warmth and tenderness LLE circumferential around lower leg wth lymphangitis into the L thigh / groin. No evident abscess / fluctuance.)
Skin: Other ( Small, tender abscess R lateral / proximal thigh without bleeding or discharge.)
Neuro: AO x 3
Sepsis likely secondary to LLE Cellulitis
- Confluent erythema with induration, warmth and lymphangitis without discrete collection / abscess.
- IV abx with Vanco given IVDA, clindamycin added
ID following
MRSA in nares
Also has some right proximal thigh possible small abscess, appears to be draining on its own. cx purulent discharge. wound cx with staph; apply warm compresses; if looks worse or not improving then will get surgical evaluation
- Encourage avoidance of IVDA in the future.
bcx NGTD
wound cx with staph and strep
Systolic murmur; unclear if new or old
given hx of IVDU; echocardiogram without any vegetation
Hyponatremia
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
Na now 139 after samsca 09/24; status post 3%/10. Nephrology following
- Fluid restriction for now and follow for changes.
Low vitamin D
Replete
Elevated LFT
Monitor
Denies any abdominal pain, if continues to get worse then will get ultrasound abdomen
Microcytic Anemia
- ? chronicity. Patient denies any known health issues.
- No noted bleeding / etc.
Appears anemia of chronic disease
Substance Abuse Disorder
- Last drug use was intranasal fentanyl about 2 weeks ago.
- Last IVDA was about 30 days ago per patient.
- Continue buprenorphine.
- Encourage continued efforts at abstinence.
UDS positive for buprenorphine, fentanyl
DVT Prophylaxis: Lovenox
Code Status: Full
Anticipated Discharge: Within 24 hours
Subjective/Interval History
-
Date of Service: September 26, 2023
denies pain
Objective Data
-
Labs:
Laboratory Results
09/26/23 09/26/23
05:44 13:00
WBC 3.4 L
Hgb 9.7 L
Hct 29.5 L
Plt Count 170 D
Sodium 139 D Pending
Potassium 4.2 Pending
Chloride 110 H Pending
Carbon Dioxide 24 Pending
BUN 13 Pending
Creatinine 0.5 L Pending
Glucose 98 Pending
Calcium 8.5 Pending
Total Bilirubin 0.5
AST 125 H
ALT 109 H
Alkaline Phosphatase 199 H
Vital Signs:
Vital Signs
Temp Pulse Resp BP Pulse Ox
98.1 F 67 16 109/67 100
09/26/23 07:21 09/26/23 07:21 09/26/23 07:21 09/26/23 07:21 09/26/23 10:55
I&O
09/25/23 09/26/23 09/27/23
06:59 06:59 06:59
Intake Total 1300 / 1300 1640 / 1640
Output Total 1300 / 1300 4750 / 4750
Balance 0 / 0 -3110 / -3110
--- NOTE | 2023-09-26 12:40 | W.PN.NEPH.PH ---
Today's Communication / Plan
-
- D5W and repeat Na labs later
Assessment/Plan
-
IMP:
Sepsis likely secondary to LLE Cellulitis
Systolic murmur
Hyponatremia
Elevated LFT
Microcytic Anemia
Substance Abuse Disorder
mild hypocalcemia
Vit D def
Hypoalbuminemia
PLan:
A/w left LE cellulitis with h/o drug use
Acute on chr Hyponatremia-suspect SIADH from left leg pain
U osmo high at 852, U na 26 suggest poor solute intake
given 3% saline and samsca. Na from 125 --> 139
- will give D5W today to keep sodium around 135
- plan for repeat Na around 1PM. If around 135, okay to stop IVF
- okay to liberalize FR as likely pain is improved and SIADH stimulus is gone
TSH and cortisol were ok
BP stable with out meds
Fe def anemia, hb decreasing -chronic in nature. will hold off on IV iron in the setting of lower extremity infection. can be done outpatient
mild hypocalcemia-vit D def-start D2
abx per primary and ID
d/w patient
-
-
Date of Service: September 26, 2023
CC / HPI / ROS
-
Chief Complaint:
hyponatremia
History of Present Illness:
sodium rapidly hernan to 139
BP stable, no fever
wound cx shows staph
echo normal
Review of Systems:
no cp or sob
no n/v, eating well
Labs
-
Labs:
WBC 3.4 10^3/uL (4.8-10.8) L 09/26/23 05:44
RBC 3.87 10^6/uL (4.70-6.10) L 09/26/23 05:44
Hgb 9.7 g/dL (13.0-18.0) L 09/26/23 05:44
Hct 29.5 % (39.0-52.0) L 09/26/23 05:44
Plt Count 170 10^3/uL (130-400) D 09/26/23 05:44
eGFR > 60.00 09/26/23 05:44
Albumin 2.9 g/dl (3.5-5.0) L 09/26/23 05:44
Physical Exam
-
Vital Signs:
Vital Signs
Temp Pulse Resp BP Pulse Ox
98.1 F 67 16 109/67 100
09/26/23 07:21 09/26/23 07:21 09/26/23 07:21 09/26/23 07:21 09/26/23 10:55
Cardiovascular:: Regular rate and rhythm
Respiratory:: Bilateral: CTA
Lung Excursion:: Normal
Abdomen:: Nontender and Soft
Bowel Sounds:: Normal
Extremity Edema:: None: Bilateral:
Cox Catheter: No
[2023-09-26 13:42] LABS: Blood Urea Nitrogen 12 mg/dl (9-20); Calcium 8.3 mg/dl (8.4-10.2); Carbon Dioxide 26 mmol/L (22-30); Chloride 107 mmol/L (98-107); Estimated Creatinine Clearance > 125 ml/min; Glucose 114 mg/dl (70-99); Sodium 136 mmol/L (135-145); eGFR > 60.00
--- NOTE | 2023-09-26 14:20 | PHA.VAN.FU ---
Vancomycin Assessment / Plan
- Assessment
Renal Function: Stable
In the past 24 hrs, patient has been: Afebrile
Concomitant Antimicrobials: clindamycin
- Dosing Plan
Continue: Vanc 1250mg Q12H
- Monitoring Plan
Peak Level: 09/25 21:00
Trough Level: 09/26 05:30
Monitoring Comments: levels drawn after 6th maintenance dose
- Follow Up
Pharmacy will continue to follow.
Vancomycin Follow UP
- -
Patient Age: 43
Patient Sex: Male
Vancomycin Day #: 3
Indication: Skin And Soft Tissue
Requesting Provider: Dr. Spears / Mike
Pertinent Antimicrobial Allergies:
NKDA
Height / Weight:
Height 5 ft 8 in
Actual Weight 59.1 kg
IBW in k.4
Pertinent Past Medical History: BMI ~19.8, HEVER
- Vital Signs / Lab Results
Temp Pulse Resp BP Pulse Ox
98.1 F 67 16 109/67 100
09/26/23 07:21 09/26/23 07:21 09/26/23 07:21 09/26/23 07:21 09/26/23 10:55
Lab Results - Hematology
09/23/23 09/24/23 09/24/23
23:33 05:37 06:12
WBC 13.8 H Cancelled 9.4
09/25/23 09/26/23
04:58 05:44
WBC 5.0 3.4 L
Lab Results - Chemistry
09/23/23 09/24/23 09/24/23
23:33 05:37 06:12
BUN 23 H Cancelled 16
Creatinine 0.7 Cancelled 0.6 L
Estimated Creat Clear 110 Cancelled > 125
Albumin 3.4 L
09/25/23 09/26/23 09/26/23
04:58 05:44 13:06
BUN 13 13 12
Creatinine 0.5 L 0.5 L 0.5 L
Estimated Creat Clear > 125 > 125 > 125
Albumin 2.6 L 2.9 L
09/23/23 09/24/23
23:33 03:30
Lactic Acid 1.8 Cancelled
Microbiology Results
09/24/23 15:53 Wound Culture - Final
Leg - Left Streptococcus pyogenes
Gram Stain - Final
09/24/23 10:28 Wound Culture - Final
Abscess Staph aureus MRSA
Gram Stain - Final
09/24/23 00:56 Blood Culture - Preliminary
Blood/Venous No Growth in 48 hours- Final report to follow
09/23/23 23:33 Blood Culture - Preliminary
Blood/Venous No Growth in 48 hours- Final report to follow
09/24/23 05:30 Urine Culture - Final
Urine NO GROWTH
09/24/23 01:38 MRSA Screen - Final
Nose Staph aureus MRSA
[2023-09-26] MEDS: TYLENOL 650 MG PO (14:29)
--- NOTE | 2023-09-26 14:31 | W.PN.ID1 ---
Date of Service
Date of Service: September 26, 2023
Today's Communication
- this evening start bactrim for MRSA, in AM switch clindamycin to amoxicillin - would continue both of these x 7 more days
stable for dc from ID perspective
Assessment / Plan
Nonpurulent Cellulitis
Superficial Wounds
IVDU
- no concern for osteomyelitis with these very superficial wounds
- blood cultures x2 in progress remain no growth to date
- wound culture x1: s aureus, wound culture x2: s pyogenes
- continue with clindamycin for today
- this evening start bactrim for MRSA, in AM switch clindamycin to amoxicillin - would continue both of these x 7 more days
- HIV screen negative
- must stop using fentanyl - discussed at length with patient 09/23
Stable for dc from ID perspective
Chief Complaint
-: Other (cellulitis)
Subjective / Review of Systems
afebrile
bp stable
mild leukopenia
cr stable
nearly resolved erythem of both legs
Vital Signs / Physical Exam
Vital Signs
Vital Signs
Temp Pulse Resp BP Pulse Ox
98.1 F 67 16 109/67 100
09/26/23 07:21 09/26/23 07:21 09/26/23 07:21 09/26/23 07:21 09/26/23 10:55
Physical Exam
Constitutional: No Acute Distress
Cardiovascular: Regular Rate
Pulmonary: Symmetric and Non Labored
Gastrointestinal: Non Distended
Skin: Warm and Dry; Negative Rash or Jaundice
Wound: Other (resolving erythema)
Objective Data
Lab Data
Lab Results
09/26/23 05:44
09/26/23 13:06
Estimated Creat Clear > 125 ml/min 09/26/23 13:06
Lactic Acid Cancelled 09/24/23 03:30
Total Bilirubin 0.5 mg/dl (0.2-1.3) 09/26/23 05:44
AST 125 U/L (17-59) H 09/26/23 05:44
ALT 109 U/L (0-50) H 09/26/23 05:44
Alkaline Phosphatase 199 U/L (38-126) H 09/26/23 05:44
Most recent labs reviewed.
Micro Results:
09/24/23 15:53 Wound Culture - Final
Leg - Left Streptococcus pyogenes
Gram Stain - Final
09/24/23 10:28 Wound Culture - Final
Abscess Staph aureus MRSA
Gram Stain - Final
09/24/23 00:56 Blood Culture - Preliminary
Blood/Venous No Growth in 48 hours- Final report to follow
09/23/23 23:33 Blood Culture - Preliminary
Blood/Venous No Growth in 48 hours- Final report to follow
09/24/23 05:30 Urine Culture - Final
Urine NO GROWTH
09/24/23 01:38 MRSA Screen - Final
Nose Staph aureus MRSA
--- NOTE | 2023-09-26 14:48 | CM ---
Reviewed the chart notes. CM continues to be available to patient/family and is monitoring medical plan for needs at discharge.
Plan: Discharge back to [facility] when medically stable.
[2023-09-26 15:31] VITALS: BP 107/68
[2023-09-26] MEDS: AMOXIL 500 MG PO ×2 (15:41→23:25)
[2023-09-26] MEDS: LOVENOX 40 MG SC (18:00)
[2023-09-26] MEDS: BACTRIM DS 800 MG/160 MG 1 TABLET PO (20:45)
[2023-09-26] MEDS: MELATONIN 5 MG PO (22:06)
[2023-09-26 23:54] VITALS: BP 100/57
[2023-09-27] MEDS: AMOXIL 500 MG PO ×2 (06:29→16:44)
[2023-09-27 07:45] VITALS: BP 119/78
[2023-09-27] MEDS: SUBUTEX 16 MG SL (09:52)
[2023-09-27] MEDS: BACTRIM DS 800 MG/160 MG 1 TABLET PO (09:52)
[2023-09-27 10:44] LABS: % Basophils 0.7 % (0-2); % Eosinophils 2.7 % (0-6); % Immature Granulocytes 0.3 % (0-0.5); % Lymphocytes 28.3 % (20.5-51.1); % Monocytes 7.4 % (1.7-9.3); % Neutrophils 60.6 % (42.2-75.2); Absolute Eosinophils 0.1 10^3/uL (0-0.7); Absolute Lymphocytes 0.8 10^3/uL (1.2-3.4); Absolute Monocytes 0.2 10^3/uL (0.1-0.6); Absolute Neutrophils 1.8 10^3/uL (1.4-6.5); Hematocrit 31.6 % (39.0-52.0); Hemoglobin 9.9 g/dL (13.0-18.0); Mean Corp Hgb Conc. 31.3 g/dL (33.0-37.0); Mean Corpuscular Hgb 24.7 pg (27.0-31.0); Mean Corpuscular Volume 78.8 fL (80.0-94.0); Mean Platelet Volume 9.6 fL (7.4-10.4); Nucleated Red Blood Cells % 0 % (-); Platelet Count 176 10^3/uL (130-400); Red Blood Cell Count 4.01 10^6/uL (4.70-6.10); Red Cell Dist. Width 16.3 % (11.5-14.5)
[2023-09-27 11:01] LABS: ALT (SGPT) 176 U/L (0-50); AST (SGOT) 189 U/L (17-59); Alkaline Phosphatase 229 U/L (38-126); Blood Urea Nitrogen 10 mg/dl (9-20); Calcium 8.5 mg/dl (8.4-10.2); Carbon Dioxide 27 mmol/L (22-30); Chloride 102 mmol/L (98-107); Estimated Creatinine Clearance > 125 ml/min; Glucose 100 mg/dl (70-99); Potassium 4.3 mmol/L (3.5-5.1); Sodium 134 mmol/L (135-145); Total Bilirubin 0.4 mg/dl (0.2-1.3); Total Protein 7.2 g/dl (6.3-8.2); eGFR > 60.00
--- NOTE | 2023-09-27 11:19 | W.PN.HOSP.TC ---
Today's Communication/Plan
-
Monitor vital signs see plan
Continue p.o. antibiotics on discharge
Repeat CMP next week
Discharge today
Time of discharge 38 minutes
Assessment / Plan
Assessment / Plan
General: No acute distress
HEENT: Moist mucous membranes and Other (Poor dentition.)
Respiratory: Clear to auscultation, no wheeze
Cardiac: S1/S2, Regular Rhythm and Murmur (II/ OMA)
GI: Soft, Non Tender, Non Distended and Normal Bowel Sounds
Musculoskeletal: Other (Erythema, induration, increased warmth and tenderness LLE circumferential around lower leg wth lymphangitis into the L thigh / groin. No evident abscess / fluctuance.)
Skin: Other ( Small, tender abscess R lateral / proximal thigh without bleeding or discharge.)
Neuro: AO x 3
Sepsis likely secondary to LLE Cellulitis
- Confluent erythema with induration, warmth and lymphangitis without discrete collection / abscess.
No change to p.o. Bactrim and amoxicillin.
ID following
MRSA in nares
Also has some right proximal thigh possible small abscess, appears to be draining on its own. cx purulent discharge. wound cx with staph; apply warm compresses; if looks worse or not improving then will get surgical evaluation
- Encourage avoidance of IVDA in the future.
bcx NGTD
wound cx with staph and strep
Systolic murmur; unclear if new or old
given hx of IVDU; echocardiogram without any vegetation
Hyponatremia
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
Na was 139 after samsca 09/24 so nephrology started D5. Sodium now 134. Spoke with nephrology we will discharge patient today; status post 3% 09/23. Nephrology following
- Fluid restriction for now and follow for changes.
Low vitamin D
Replete
Elevated LFT
Monitor
Denies any abdominal pain, if continues to get worse then will get ultrasound abdomen
Microcytic Anemia
- ? chronicity. Patient denies any known health issues.
- No noted bleeding / etc.
Appears anemia of chronic disease
Substance Abuse Disorder
Opioid use with dependence
- Last drug use was intranasal fentanyl about 2 weeks ago.
- Last IVDA was about 30 days ago per patient.
- Continue buprenorphine.
- Encourage continued efforts at abstinence.
UDS positive for buprenorphine, fentanyl
DVT Prophylaxis: Lovenox
Code Status: Full
Anticipated Discharge: Today
Subjective/Interval History
-
Date of Service: September 27, 2023
Denies pain
Objective Data
-
Labs:
Laboratory Results
09/27/23
10:22
WBC 3.0 L
Hgb 9.9 L
Hct 31.6 L
Plt Count 176
Sodium 134 L
Potassium 4.3
Chloride 102
Carbon Dioxide 27
BUN 10
Creatinine 0.6 L
Glucose 100 H
Calcium 8.5
Total Bilirubin 0.4
AST 189 H
ALT 176 H
Alkaline Phosphatase 229 H
Vital Signs:
Vital Signs
Temp Pulse Resp BP Pulse Ox
98.4 F 73 14 119/78 100
09/27/23 07:45 09/27/23 07:45 09/27/23 07:45 09/27/23 07:45 09/27/23 10:48
I&O
09/26/23 09/27/23 09/28/23
06:59 06:59 06:59
Intake Total 1640 / 1640 1855 / 1855
Output Total 4750 / 4750 3150 / 3150
Balance -3110 / -3110 -1295 / -1295
--- NOTE | 2023-09-27 11:26 | W.DCSUMMARY ---
Discharge Summary
Discharge Data
Date of Admission: 09/24/23
Date of Discharge: 09/27/23
-
Pending Results: No
Hospital Course
43-year-old male with past medical history of IV drug use, opioid use with dependence came to the hospital with sepsis secondary to left lower extremity cellulitis. Patient was initially started on IV antibiotic which was later transitioned to oral
antibiotics prior to discharge. Patient also had proximal right thigh small abscess which appeared to drain on its own. It was very superficial in nature so did not require any I&D. Culture from that abscess was positive for staph and strep. On
discharge patient was put on Bactrim and amoxicillin to complete the course. Patient also had systolic murmur for which echocardiogram was done which did not show any signs of vegetations. Patient also initially was receiving 3% saline and later
received Samsca. It was appeared that hyponatremia was likely from SIADH. He also had elevated LFTs however did not had any abdominal pain. It appeared his elevated liver enzymes is likely from drug use. He was instructed to get repeat CMP done
outpatient. His vitamin D was also critically low so he was started on vitamin D. Once patient symptoms improved, he was then discharged to present with instructions to follow-up with physician in their outpatient.
Discharge Plan
-
Patient Disposition: [facility]
Discharge Diagnosis/Procedures: Sepsis likely secondary to left lower extremity cellulitis
Hyponatremia secondary to SIADH
Low vitamin D
Elevated liver enzymes
Diet: As tolerated and Restrict fluids to 48 oz
Activity: As tolerated
Blood Work: Repeat CMP next week
Activity Restrictions/Additional Instructions:
Wound Care Instructions
LLE wounds-clean with saline or soap and water, adaptic, ABD pad, secure with Kerlix or stockinet, change daily and prn drainage.
RLE pustules-if open/drains, clean with saline or soap and water and cover with non stick dressing daily.
R hip abscess-clean with saline or soap and water, gauze pad/s, secure with tape or silicone border foam, change daily and prn drainage.
Follow up wound wound insurance healthcare consultant or at wound care center if needed call for an appointment.
Last day of antibiotics 10/04/2023
Referrals:
[facility] [Family Provider] - in less than 1 week
Prescriptions:
New
amoxicillin 500 mg Capsule
500 mg PO Q8H Qty: 0 0RF
sulfamethoxazole-trimethoprim 800-160 mg Tablet
1 tab PO BID Qty: 0 0RF
ergocalciferol (vitamin D2) 1,250 mcg (50,000 unit) Capsule
1,250 mcg PO Q7D Qty: 0 0RF
Continued
buprenorphine-naloxone 8-2 mg Tablet, Sublingual
2 tab SUBLINGUAL DAILY
Discharge Orders:
Discharge Patient (As Directed); Ordered 09/27/23
Ordered By: Micheal Pastor
Discharge Date and Time
Discharge Date/Time: 09/27/23 18:54
Print Language: KINYARWANDA
[2023-09-27 11:30] VITALS: BP 104/65
--- NOTE | 2023-09-27 11:34 | CM ---
CM reviewed chart and noted dc order
Plan for return to [facility] on oral abx
No other dc needs noted
Discharge Disposition- return [facility]
Phone- [phone] Fax- [phone]
[2023-09-27 12:13] VITALS: BP 104/65
[2023-09-27 15:15] VITALS: BP 106/64
--- NOTE | 2023-09-27 17:51 | PTCARENOTE ---
Patient discharged back to [facility]. IVs removed by this RN, report called to Rubi at facility. Patient dressed and belongings gathered by correctional officers in room, discharge packet handed to consular officer by
this RN. Patient transported back to facility via correctional officers.
== END 2023-09-27 18:54 | DRG 872 ==
LOC: 2 NORTH 02:36
PROVIDERS: Clinical Nurse Specialist Family Health; Student in an Organized Health Care Education/Training Program; ADMITTING PHYSICIAN Hospitalist; ATTENDING PHYSICIAN Internal Medicine; CONSULT PHYSICIAN Internal Medicine; CONSULT PHYSICIAN Student in an Organized Health Care Education/Training Program; EMERGENCY PHYSICIAN Student in an Organized Health Care Education/Training Program
DX: A41.9 Sepsis, unspecified organism (principal); L03.116 Cellulitis of left lower limb; F11.20 Opioid dependence, uncomplicated; E22.2 Syndrome of inappropriate secretion of antidiuretic hormone; B95.0 Streptococcus, group A, as the cause of diseases classified elsewhere; B95.7 Other staphylococcus as the cause of diseases classified elsewhere; F19.10 Other psychoactive substance abuse, uncomplicated
CPT/HCPCS: 71046; 80048; 80053; 80306; 80307; 81003; 81015; 82306; 82533; 83036; 83540; 83550; 83605; 83930; 83935; 84295; 84300; 84443; 84484; 85025; 85027; 87040; 87070; 87077; 87086; 87147; 87186; 87205; 87389; 93005; 93306; 93971; 96361; 96365; 96375; 99285; 99406

== ENCOUNTER 2023-10-04 06:34 | Inpatient (IN) | payer OTHER, SELFPAY ==
[2023-10-04] VITALS (37 sets, daily range): BP systolic 86–141; BP diastolic 55–97; BMI 22.9
--- NOTE | 2023-10-04 03:16 | ED.GENMEDP ---
History of Present Illness Ped
General
Time Seen by Provider: 10/04/23 03:14
Past Medical History Pediatric
Family/Social History
Tobacco: Former smoker
Alcohol: None
Drug: IVDA and Other (Snorting)
Course
Orders/Labs/Results
Orders:
Orders
10/04/23 03:15
Total CK [Creatine Phosphokinase] Urgent
Lorazepam [Ativan] 1 mg IV NOW STA
10/04/23 03:16
NSS 1000mL Bolus WIDE OPEN 0.9% Sodium Chloride 1000 ml [Nss] 1,000 ml IV BOLUS
ED Attending Note
-
Portions of this chart may have been created with voice recognition software.� Occasional wrong word or��sound alike� substitutions may have occurred due to the inherent limitations of voice recognition software.
Discharge Plan
Departure
Prescriptions:
No Action
buprenorphine-naloxone 8-2 mg Tablet, Sublingual
2 tab SUBLINGUAL DAILY
amoxicillin 500 mg Capsule
500 mg PO Q8H Qty: 0 0RF
sulfamethoxazole-trimethoprim 800-160 mg Tablet
1 tab PO BID Qty: 0 0RF
ergocalciferol (vitamin D2) 1,250 mcg (50,000 unit) Capsule
1,250 mcg PO Q7D Qty: 0 0RF
Referrals:
NONE,* [Family Provider] -
Discharge Date and Time
Print Language: IVORIAN
--- NOTE | 2023-10-04 03:23 | ED.GENMED ---
History of Present Illness
General
Chief Complaint: Seizure
Source: ambulance crew and previous hospital records
Exam Limitations: none
Time Seen by Provider: 10/04/23 03:14
Nursing documentation reviewed up to this point in time: agreed with
History of Present Illness
History of Present Illness:
The patient is a 43-year-old male inmate coming from custodial after having a possible tonic-clonic seizure. The patient was initially dispatched as a cardiac arrest, however, paramedics report that the custodial reported tonic-clonic movement from the
patient. The patient was given 2 mg of Valium by the custodial. Paramedics gave him 5 mg of Versed to deal with agitation en route. Patient arrives extremely agitated, thrashing around, and disheveled. Patient has a history of IV drug use and was
recently hospitalized for sepsis related to a leg cellulitis. It is unclear patient has a seizure disorder. Patient does not offer any history. There is no obvious trauma on the patient's face or head. Patient does appear to get his tongue and
he does have urine in his pants.
Past History
Past History
ED Past Medical History: Other (Fentanyl abuse)
ED Past Surgical History: Other
Social History
Tobacco: Former smoker
Alcohol: None
Drug: IVDA and Other (Snorting)
Personal: Single
Living: custodial
Employment: Other
Family History
Family History: Other
Review of Systems
Review of Systems
Allergies reviewed?: Yes
Unable to obtain full review of systems at this time due to: non-verbal
Other source history: ambulance crew
All Other Systems: Not applicable
Phy Exam
Physical Exam
Physical Exam:
Physical Exam
General: Patient agitated, moaning, nonverbal
Neck: supple. Abrasion to tip of tongue
Heart: Tachycardic
Lungs: Hyperventilating
Abdomen:
Neuro: alert and oriented. no focal neurological deficits
Skin: no rash
Psychiatric: well kept. interactive and cooperative
Extremities: no edema. no calf tenderness. negative homans. good distal pulses
Course
Orders/Labs/Results
Orders:
Orders
10/04/23 03:15
Lorazepam [Ativan] 1 mg IV NOW STA
10/04/23 03:16
0.9% Sodium Chloride 1000 ml [Nss] 1,000 ml IV BOLUS
Lorazepam [Ativan] 2 mg .ROUTE .STK-MED ONE
10/04/23 03:17
Electrocardiogram (*1) Urgent
Reason for Study: Tachycardia
EKG- Treatment ONCE
Urine Drug Abuse Screen Urgent
10/04/23 03:19
CT Head W/o Iv Contrast Urgent
Comment:
Reason For Exam: likely seizure
10/04/23 03:25
Lorazepam [Ativan] 1 mg IV NOW STA
10/04/23 03:45
Alcohol Urgent
Complete Blood Count/With Diff Urgent
Comprehensive Metabolic Panel Urgent
Lactic Acid Urgent
Total CK [Creatine Phosphokinase] Urgent
Troponin I Urgent
10/04/23 03:53
Olanzapine [Zyprexa] 7.5 mg IM NOW STA
10/04/23 04:31
0.9% Sodium Chloride 1000 ml [Nss] 1,000 ml IV BOLUS
10/04/23 04:32
Calcium Gluconate 1 gram/100mL [Calcium Gluconate] 1 gram in 100 ml IV ONCE
Dextrose 50%-Water [Dextrose 50% Syringe] 25 grams IV NOW STA
Insulin Human Regular [Novolin R] 10 units IV NOW STA
Sodium Bicarbonate 50 meq IV NOW STA
10/04/23 05:37
Procalcitonin Urgent
PCT Algorithmm Indication: Sepsis
Blood Culture Q30M
VIJAY Source: Blood/Venous
Specimen Description:
Blood Culture Q30M
VIJAY Source: Blood/Venous
Specimen Description:
10/04/23 06:15
Admit/Transfer Patient As Directed
Co-Sign Provider:
Level of Care: Inpatient admission
Assign to:: ICU
Physician / Group: Regan
Diagnosis: Seizure, Hyponatremia
Reason for Hospitalization: Seizure, Hyponatremia
Expected length of stay greater than two midnights?: Yes
ELOS- Estimated Length of Stay in days: 4
I certify the patient meets the requirements for IP care: Yes
3% Sodium Chloride 250 ml [Sodium Chloride 3%] 250 ml IV ONCE
10/04/23 06:16
Code Status As Directed
Resuscitation Status: Full Code
10/04/23 06:19
BMP [Basic Metabolic Panel] Urgent
Abnormal Lab Results
10/04/23
03:45
RBC 4.66 L 10^6/uL
(4.70-6.10)
Hgb 11.5 L g/dL
(13.0-18.0)
Hct 33.9 L %
(39.0-52.0)
MCV 72.7 L fL
(80.0-94.0)
MCH 24.7 L pg
(27.0-31.0)
RDW 16.6 H %
(11.5-14.5)
Abs Immat Gran (auto) 0.1 H 10^3/uL
(0-0.05)
Immature Gran % 1.5 H %
(0-0.5)
Sodium 113 L* mmol/L
(135-145)
Potassium 6.0 H mmol/L
(3.5-5.1)
Chloride 85 L mmol/L
(98-107)
Carbon Dioxide 13 L* mmol/L
(22-30)
Glucose 101 H mg/dl
(70-99)
Lactic Acid 4.8 H* mmol/L
(0.7-2.0)
AST 86 H U/L
(17-59)
ALT 107 H U/L
(0-50)
Alkaline Phosphatase 141 H U/L
(38-126)
Total Protein 8.8 H g/dl
(6.3-8.2)
10/04/23 03:45
Vital Signs
Initial and Last Documented VS:
Initial Vital Signs
Pulse Resp BP Pulse Ox
112 21 123/95 95
10/04/23 03:20 10/04/23 03:20 10/04/23 03:20 10/04/23 03:20
Last Documented Vital Signs
Temp Pulse Resp BP Pulse Ox
97.8 F 71 13 114/75 99
10/04/23 03:32 10/04/23 06:30 10/04/23 06:30 10/04/23 06:30 10/04/23 06:30
MDM/Problems Addressed
Differential Diagnosis Includes:
Withdrawal seizure, epilepsy, intracranial hemorrhage
MDM/Problems Addressed:
Patient presents with a history of seizure in custodial and is now extremely agitated
Acute Exacerbation and/or Progression of Chronic Illness:
Patient is acutely hypertensive but also extremely agitated and thrashing around
Acute Exacerbation and/or Progression of Chronic Illness: HTN
*Radiology
Radiology exam reviewed: preliminary read by ED provider (CT head reviewed by me. No acute hemorrhage seen by me) and radiology read reviewed (Pending admission)
*Pulse Oximetry
Patient hypoxic: no
*EKG
Interpreted by ED Provider?: Yes
Interpretation: abnormal
Comparison EKG: no comparison EKG present
Rate: normal
Rhythm: sinus
[place]: normal axis
Interval: normal interval
QRS Pattern: normal QRS
Ischemia: no ischemia
*Clin Asst Interpretation
Rate: normal
Interpretation: normal
Rhythm: sinus
*Critical Care Note
Total Time (30-74mins, 75-104mins- exclusive of procedures): 55 minutes
comment:
55 minutes critical care given to the patient including multiple reassessments of his mental status, heart rate, reviewing his CT head, recent hospitalization, and reviewing his blood work
Data Reviewed
Review of Other/Old Records Reveals: Discharge Summary (Discharge summary reviewed from earlier this month when patient was admitted for left lower leg cellulitis)
Patient Management
Discussion with other providers: Hospitalist
Escalation/DeEscalation of care consider admission/obs:
Due to patient's profound metabolic acidosis and hyponatremia, patient will be admitted.
ED Attending Note
-
Portions of this chart may have been created with voice recognition software.� Occasional wrong word or��sound alike� substitutions may have occurred due to the inherent limitations of voice recognition software.
Discharge Plan
Departure
Patient Disposition: Admit
Date of Disposition: 10/04/23
Time of Disposition: 04:32
Admit to: ICU
Presentation/result/management discussed w/ accepting MD/DO: Hospitalist
Patient with high blood pressure during this ER visit?: Yes
Condition: Critical
Covid-19: Not Applicable
Discharge Problem:
Acute hyponatremia, Acute metabolic encephalopathy, Tonic-clonic seizure, Metabolic acidosis
Interventions
Interventions:
*Risk Screen - Suicide Last Done: 10/04/23 03:20
*General Assessment Last Done: 10/04/23 03:20
*Neglect/Abuse Screening Last Done: 10/04/23 03:20
ED- Fall Risk Assessment Last Done: 10/04/23 03:29
*ED COVID-19 Vaccine History Last Done: 10/04/23 03:29
ED- Cardiac Assessment Last Done: 10/04/23 03:29
ED- Neurological Assessment Last Done: 10/04/23 03:29
ED- Pulmonary Assessment Last Done: 10/04/23 03:29
[2023-10-04] MEDS: ATIVAN 1 MG IV ×2 (03:26→03:27)
[2023-10-04] MEDS: NSS 1000 IV ×2 (03:27→07:49)
[2023-10-04 03:52] LABS: % Basophils 0.4 % (0-2); % Eosinophils 1.4 % (0-6); % Immature Granulocytes 1.5 % (0-0.5); % Monocytes 5.9 % (1.7-9.3); % Neutrophils 55.8 % (42.2-75.2); Absolute Eosinophils 0.1 10^3/uL (0-0.7); Absolute Immature Granulocytes 0.1 10^3/uL (0-0.05); Absolute Lymphocytes 2.8 10^3/uL (1.2-3.4); Absolute Monocytes 0.5 10^3/uL (0.1-0.6); Absolute Neutrophils 4.4 10^3/uL (1.4-6.5); Hematocrit 33.9 % (39.0-52.0); Hemoglobin 11.5 g/dL (13.0-18.0); Mean Corp Hgb Conc. 33.9 g/dL (33.0-37.0); Mean Corpuscular Hgb 24.7 pg (27.0-31.0); Mean Corpuscular Volume 72.7 fL (80.0-94.0); Mean Platelet Volume 9.2 fL (7.4-10.4); Nucleated Red Blood Cells % 0 % (-); Platelet Count 338 10^3/uL (130-400); Red Blood Cell Count 4.66 10^6/uL (4.70-6.10); Red Cell Dist. Width 16.6 % (11.5-14.5)
[2023-10-04 04:07] LABS: Lactic Acid 4.8 mmol/L (0.7-2.0)
[2023-10-04 04:11] LABS: ALT (SGPT) 107 U/L (0-50); AST (SGOT) 86 U/L (17-59); Albumin 4.1 g/dl (3.5-5.0); Alcohol < 10 mg/dl; Alkaline Phosphatase 141 U/L (38-126); Blood Urea Nitrogen 12 mg/dl (9-20); Carbon Dioxide 13 mmol/L (22-30); Chloride 85 mmol/L (98-107); Creatine Phosphokinase 132 U/L (55-170); Glucose 101 mg/dl (70-99); Sodium 113 mmol/L (135-145); Total Bilirubin 0.7 mg/dl (0.2-1.3); Total Protein 8.8 g/dl (6.3-8.2); eGFR > 60.00
[2023-10-04] MEDS: ZYPREXA 7.5 MG IM (04:11)
[2023-10-04 04:17] LABS: Troponin I < 0.012 ng/ml
[2023-10-04] MEDS: CALCIUM GLUCONATE 100 IV (04:52)
[2023-10-04] MEDS: DEXTROSE 50% SYRINGE 25 GRAMS IV (04:52)
[2023-10-04] MEDS: SODIUM BICARBONATE 50 MEQ IV (04:52)
[2023-10-04] MEDS: NOVOLIN R 10 UNITS IV (04:52)
[2023-10-04 06:11] LABS: Procalcitonin 0.09 ng/ml (0.0-0.25)
--- NOTE | 2023-10-04 06:22 | HPS.HSE ---
Family Physician
-
Family Physician: * NONE
Chief Complaint
-
Seizure
History of Present Illness
Patient is a 43y M with PMH significant for substance abuse and recent hospitalization for cellulitis and hyponatremia who presents to ED for evaluation after witnessed seizure activity at [facility] this evening. Patient is sedate at the time of my
examination and is unable to contribute to this history. History obtained from ED and [facility] staff / records. Patient was reportedly noted to have tonic-clonic seizure activity at the [facility] this evening. He was given Valium 2mg at the [facility] and
received 5mg of Versed from EMS en route due to agitation in the ambulance. On arrival to the ED, patient remained quite agitated, disoriented and combative.
He received additional Ativan x 2 doses and Zyprexa in the ED for control of his agitation.
Patient was recently hospitalized from 09/23 - 09/26 secondary to LLE cellulitis. During that admission he was noted to have hyponatremia. His Na level seemed to be level around 125 despite 3% saline or fluid restriction.
He received one dose of Samsca and his Na level increased to 139. It was at 134 at the time of discharge the following day.
Patient was [facility] to [facility] on amoxicillin and Bactrim DS to complete treatment of his cellulitis.
Medical History
Past Medical History
Past Medical History: Reports Other
Additional Past Medical History:
Substance Abuse
Past Surgical History: Reports Other
Social History
Tobacco: Smoker (/ ppd. Approx 10 pack years total use.)
Alcohol: None
Drug: IVDA (Unable to clarify/ confirm any recent use with patient due to sedation.) and Other (Prior use of intranasal Fentanyl as well as IVDA.)
Living: Halfway
Family History
Family History: Not pertinent
Allergies / Home Medications
Allergies reflects when Allergies were last updated in [facility].
Home Medications with original date entered in [facility]
Allergy/Medication List:
Allergies
Allergy/AdvReac Type Severity Reaction Status Date / Time
No Known Allergies Allergy Unverified 09/23/23 22:58
Home Medications
buprenorphine 8 mg-naloxone 2 mg sublingual tablet 2 tab sublingual DAILY HEVER 09/23/23
amoxicillin 500 mg capsule 500 mg PO Q8H #0 caps 09/27/23
ergocalciferol (vitamin D2) 1,250 mcg (50,000 unit) capsule 1,250 mcg PO Q7D #0 caps 09/27/23
sulfamethoxazole 800 mg-trimethoprim 160 mg tablet 1 tab PO BID #0 tabs 09/27/23
Review of Systems
-
Unable to obtain full review of systems at this time due to: Other (Patient sedated / unresponsive.)
Physical Exam
Vital Signs
Vital Signs
Temp Pulse Resp BP Pulse Ox
97.8 F 82 16 104/69 97
10/04/23 03:32 10/04/23 04:15 10/04/23 04:15 10/04/23 04:14 10/04/23 04:00
Physical Exam
General: Other (43y M appears older than stated age. Sedate in the ED with intermittent attempts to sit up / pull against restraints.)
HEENT: Other (Extremely poor dentition. Laceration to the R tongue with some evidence of bleeding.)
Respiratory: Clear; No Wheezes, Rales or Rhonchi
Cardiac: S1/S2 and Regular Rhythm; No Murmur
GI: Soft, Non Tender, Non Distended and Normal Bowel Sounds
Musculoskeletal: No Clubbing, No Cyanosis and Other (LLE appears significantly improved from prior.)
Neuro: Sedated
Laboratory Results
-
10/04/23 03:45
Laboratory Results
Lactic Acid 4.8 mmol/L (0.7-2.0) H* 10/04/23 03:45
Total Bilirubin 0.7 mg/dl (0.2-1.3) 04/20/24 03:45
AST 86 U/L (17-59) H 10/04/23 03:45
ALT 107 U/L (0-50) H 10/04/23 03:45
Alkaline Phosphatase 141 U/L (38-126) H 10/04/23 03:45
Troponin I < 0.012 ng/ml 10/04/23 03:45
Impression/Plan
-
A/P: Patient is a 43y M with PMH significant for substance abuse who [facility] for evaluation of seizure activity.
Seizure Activity
Lactic Acidosis secondary to the above
Post-Ictal Agitation secondary to the above
- Admit to ICU for further evaluation and treatment.
- Very likely secondary to severe hyponatremia with Na level on admission of 113.
- Treat hyponatremia / SIADH as outlined below.
- Continue IV Ativan / sedation as needed for post-ictal agitation or any additional seizure activity.
- CT head done in the ED with no acute abnormalities noted to my eye - formal report is pending.
- Will ask Neuro to evaluate - though fairly certain that seizure is a result of metabolic derangements.
- Note lactic acidosis, electrolyte abnormalities, etc - very likely due to seizure.
- Follow-up repeat BMP - suspect these abnormalities will resolve without specific interventions.
- UDS is pending to rule out potential contribution of substance abuse to seizure activity.
Severe Hyponatremia
- Na on arrival was 113.
- During prior admission seemed to have a plateau around 125 - increased after Samsca dose.
- ? worsening hyponatremia due to Bactrim which he was taking for cellulitis.
- Hold further abx.
- 3% saline given seizures, severe hyponatremia, etc.
- Nephrology evaluation for additional recommendations.
- Repeat urine studies.
- Follow for clinical improvement coincident with improvement in hyponatremia.
Recent LLE Cellulitis
- Remains on amoxicillin and Bactrim - scheduled to complete after today's doses.
- Will hold further abx as noted above.
- Appears significantly improved from prior.
- Follow for any new changes.
Polysubstance Abuse
- Patient with prior history of IVDA and intranasal Fentanyl use.
- UDS pending to rule out recent issue / acute ingestion.
Hypovitaminosis D
- Resume Vit D supplementation once patient awake / alert.
DVT Prophylaxis: SCDs
Code Status: Full
[2023-10-04 07:18] LABS: Blood Urea Nitrogen 11 mg/dl (9-20); Calcium 9.2 mg/dl (8.4-10.2); Carbon Dioxide 24 mmol/L (22-30); Chloride 87 mmol/L (98-107); Glucose 121 mg/dl (70-99); Potassium 4.4 mmol/L (3.5-5.1); Sodium 118 mmol/L (135-145); eGFR > 60.00
[2023-10-04] MEDS: SODIUM CHLORIDE 3% 250 IV ×2 (07:40→17:52)
--- NOTE | 2023-10-04 07:40 | EDRN ---
Received patient on stretcher with [address] [employer] guards at bedside. Patient sleeping at present time. 3% Saline started.
--- NOTE | 2023-10-04 09:20 | EDRN ---
Report given to ELIU Silveira in ICU. Patient taken to room 3369 on monitor in 4 point restraints with [facility] guards with 3% Saline and NSS infusing.
--- NOTE | 2023-10-04 09:28 | W.CON.NEPH ---
Consultation
-
Date/Time Consultation Requested: 10/04/2023 915
Date/Time Consultation Performed: 10/04/2023 930
Requesting Provider: Allen
Performing Provider: Dr. Reyes
Reason for Consultation: Hyponatremia
Medical History
-
Chief Complaint: Hyponatremia
History of Present Illness:
Patient is a 43-year-old prisoner from the prisoner with a history of IV drug abuse opioid use who recently been admitted on September 232023 left lower extremity cellulitis. Culture from the abscess was positive for staph and strep he was
eventually discharged on Bactrim and amoxicillin. 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 He presented to the hospital on 10/04/2023 following a witnessed seizure at the
shelter last evening. His serum sodium was 113 on presentation. We were consulted for his hyponatremia. He received 3% saline last evening with a sodium rise up to 118.
Past Medical History
Recent left lower extremity cellulitis
Drug abuse
Hyponatremia
Social History
Tobacco: Smoker
Alcohol: None
Drug: IVDA
Living: Retirement
Family History
No chronic kidney disease
Allergies / Home Medications
Allergy/AdvReac Type Severity Reaction Status Date / Time
No Known Allergies Allergy Unverified 09/23/23 22:58
�Medication �Instructions �Recorded �Confirmed �Type
amoxicillin 500 mg capsule 500 mg PO Q8H #0 caps 09/27/23 10/04/23 Rx
sulfamethoxazole 800 1 tab PO BID #0 tabs 09/27/23 10/04/23 Rx
mg-trimethoprim 160 mg tablet
buprenorphine HCl 8 mg sublingual 16 mg sublingual DAILY 10/04/23 10/04/23 History
tablet
cholecalciferol (vitamin D3) 25 25 mcg PO DAILY 10/04/23 10/04/23 History
mcg (1,000 unit) tablet (Vitamin
D3)
ibuprofen 200 mg tablet (Advil) 400 mg PO BIDPRN PRN mild pain 10/04/23 10/04/23 History
Review of Systems
-
Unable to obtain full review of systems at this time due to: Acuity
All other systems: Negative unless noted
Physical Exam
Vital Signs
Vital Signs
Temp Pulse Resp BP Pulse Ox
97.8 F 68 14 126/97 96
10/04/23 03:32 10/04/23 09:23 10/04/23 09:23 10/04/23 09:23 10/04/23 09:23
Lab Results
WBC 8.0 10^3/uL (4.8-10.8) 10/04/23 03:45
10/04/23 03:45
RBC 4.66 10^6/uL (4.70-6.10) L 10/04/23 03:45
Hgb 11.5 g/dL (13.0-18.0) L 10/04/23 03:45
Hct 33.9 % (39.0-52.0) L 10/04/23 03:45
Plt Count 338 10^3/uL (130-400) D 10/04/23 03:45
Potassium 4.4 mmol/L (3.5-5.1) D 10/04/23 06:19
Chloride 87 mmol/L (98-107) L 10/04/23 06:19
Carbon Dioxide 24 mmol/L (22-30) 10/04/23 06:19
BUN 11 mg/dl (9-20) 10/04/23 06:19
Creatinine 0.6 mg/dL (0.7-1.3) L 10/04/23 06:19
eGFR > 60.00 10/04/23 06:19
Glucose 121 mg/dl (70-99) H 10/04/23 06:19
Calcium 9.2 mg/dl (8.4-10.2) 10/04/23 06:19
Albumin 4.1 g/dl (3.5-5.0) 10/04/23 03:45
Physical Exam
General: Other (Postictal poorly responds)
Respiratory: Clear
Cardiac: S1/S2 and Regular Rate/Rhythm
Abdomen: Soft, Nontender, Nondistended and Normal Bowel Sounds
Rectal: Deferred by Provider
Genito-urinary: No Costovertebral Tender
Musculoskeletal: No Edema
Skin: Other (Cellulitic changes left lower extremity)
Neuro: Sedated and Other (Postictal)
Psych: Other (Encephalopathic)
Data Reviewed
-
CT Scan: Report Reviewed by me (Head CT without acute finding)
Labs: Labs Reviewed by me (BMP)
Old Records: Reviewed (Reviewed sodium 134 from early September 2023)
Assessment/Plan
-
Impression:
Hyponatremia with seizure
Polysubstance abuse
Left lower leg cellulitis currently on amoxicillin and Bactrim
Plan:
-Maintain fluid restriction
-Urine osmolality of 761 consistent with SIADH
-3% saline provided, follow-up lytes every 4hr
-I will discontinue normal saline despite elevated lactic acid as normal saline will likely drop his serum sodium in the setting of SIADH
-He is currently hemodynamically stable
-Patient is critically ill postictal from seizure in setting of euvolemic
-Patient will require 1200 cc fluid restriction when p.o.
-45 minutes critical care time spent with
[2023-10-04] MEDS: PROTONIX IV 40 MG IV (09:53)
[2023-10-04] MEDS: NSS (PRESERVATIVE FREE) 10 ML IV (09:53)
[2023-10-04 10:01] LABS: Sodium 114 mmol/L (135-145)
[2023-10-04 10:03] LABS: Lactic Acid 1.4 mmol/L (0.7-2.0)
--- NOTE | 2023-10-04 10:11 | PTCARENOTE ---
pt received form ed lethargic wakes to name states. oriented to self and place. states no pain and falls back to sleep quickly. in 4 point leather restraints. transitioned to soft restraints and rails. 3% saline and ivf from ed running.
andres in to see pt. ordered to stop 2nd liter of nss. latest sodium result relayed to him. aprox 200 cc infused. nss seen on monitor. pt now asleep. following commands when awake. room air breath sounds clear. multiple old healed
wounds/scabs noted. small abrasion on upper right back red. condom cath placed on pt.
[2023-10-04 10:35] LABS: TSH Reflex To Free T4 6.72 uIU/ml (0.47-4.68)
--- NOTE | 2023-10-04 10:54 | CON.INTV ---
Consultation
Consultation Request
Date/Time Consultation Requested: 10-04-23
Date/Time Consultation Performed: 10-04-23
Requesting Provider: Hospitalist thaddeus
Performing Provider: Dr Gil
Reason for Consultation: sz
Medical History
-
Chief Complaint: sz
History of Present Illness:
Mr Gerald Rashid is a 43/M inmate adm early AM 10-03 with sz event witnessed by EMS personnel (tonic clonic movements).
Given IV valium and versed. Arrived at ER agitated. Known h/o IVDU, recent adm to 09-23 to , coming from longterm for LLE cellulitis, hyponatremia/SIADH, vit D deficiency (negative TTE for IE), d/c on amoxicillin/TMP-SMX
Seen in ICU, sleepy, arousable, answer few simple questions and commands
Under police custody, LLE shackles
Past Medical History
Past Medical History: Other (see A&P for PMH/PSH)
Social History
Tobacco: Former Smoker
Drug: IVDA
Living: Assisted
Family History
Family History: Unable to Obtain
Allergies / Home Medications
Allergies
Allergy/AdvReac Type Severity Reaction Status Date / Time
No Known Allergies Allergy Unverified 09/23/23 22:58
Home Medications
�Medication �Instructions �Recorded �Confirmed �Last Taken �Type
amoxicillin 500 mg capsule 500 mg PO Q8H #0 caps 09/27/23 10/04/23 Unknown Rx
sulfamethoxazole 800 1 tab PO BID #0 tabs 09/27/23 10/04/23 Unknown Rx
mg-trimethoprim 160 mg tablet
buprenorphine HCl 8 mg sublingual 16 mg sublingual DAILY 10/04/23 10/04/23 Unknown History
tablet
cholecalciferol (vitamin D3) 25 25 mcg PO DAILY 10/04/23 10/04/23 Unknown History
mcg (1,000 unit) tablet (Vitamin
D3)
ibuprofen 200 mg tablet (Advil) 400 mg PO BIDPRN PRN mild pain 10/04/23 10/04/23 Unknown History
Review of Systems
-
Unable to Obtain full review of systems at this time due to: Acuity
Vitals / Labs / Diagnostic Testing
Vital Signs
Temp Pulse Resp BP Pulse Ox
97.6 F 69 11 111/81 100
10/04/23 10:21 10/04/23 10:15 10/04/23 10:15 10/04/23 10:15 10/04/23 10:15
Lab Data
10/04/23 03:45
Diagnostic Testing:
Physical Exam
-
HEENT: Normocephalic and Moist Mucous Membranes
Cardiovascular: Regular Rhythm, Murmur (n) and Peripheral Edema
Respiratory: Clear and Non-Labored Respirations
GI: Soft, Non Distended and Tender (mild diffuse)
Neurology: Other (sleepy, arousable, nonfocal)
Skin: Warm
General: Respiratory Distress (n)
Assessment
-
Assessment:
Mr Gerald Rashid is a 43/M inmate adm early AM 10-03 with sz event witnessed by EMS personnel (tonic clonic movements). Given IV valium and versed. [facility], recent adm to 09-23 to 24, coming from longterm for LLE
cellulitis, hyponatremia/SIADH, vit D deficiency (negative TTE for IE), d/c on amoxicillin/TMP-SMX
Impression:
Seizure event
Acute on chronic hyponatremia, SIADH
Adm serum Na 113
Resolved lactacidemia
Improved subacute transaminitis
Negative PCT
Elevated TSH (normal on 09-23 at 2.75)
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
IVDU, on chronic buprenorphine/naloxone
LLE cellulitis, hyponatremia/SAIDH, adm early September 2023
Vit D deficiency
Smoker
Inmate
Plan:
Adm to ICU
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
Likely due to acute on chronic hyponatremia, adm serum Na 113 (recent adm Na 122-125)
Unclear precipitating event
Head CT 10-04-23: no acute findings. R frontal and L anterior temporal lobe encephalomalacia (c/w TBI)
O2 protocol
Asp precs
Monitor MS and sz
Neurology consulted
prn lorazepam IV
S/p 3% saline at ER
Monitor Na levels
Fluid restriction
Nephrology following
GI and DVT prophylaxis
Observe off atbs
Apparently completed atbs for recent LLE cellulitis
On police custody
Critical care time: 45 min
[2023-10-04 11:11] LABS: Free T4 1.09 ng/dl (0.78-2.19)
[2023-10-04 13:08] LABS: Sodium 114 mmol/L (135-145)
[2023-10-04] MEDS: TYLENOL 650 MG PO (13:45)
[2023-10-04 14:28] LABS: Osmolality Urine 527 mOsm/kg (300-900)
[2023-10-04 14:37] LABS: Urine Sodium 167 mmol/L (30-90)
[2023-10-04 14:40] LABS: Amphetamines Negative (Negative); Barbiturates Negative (Negative); Benzodiazepines Positive (Negative); Buprenorphine Positive (Negative); Cocaine Negative (Negative); Marijuana Negative (Negative); Methadone Negative (Negative); Methamphetamines Negative (Negative); Opiates Negative (Negative); Phencyclidine Negative (Negative); Tricyclic Antidepressants Negative (Negative)
[2023-10-04 14:52] LABS: Fentanyl, Urine Negative (Negative)
[2023-10-04] MEDS: LASIX 20 MG IV (15:35)
[2023-10-04 17:36] LABS: Sodium 114 mmol/L (135-145)
--- NOTE | 2023-10-04 19:08 | CON.NEURO4 ---
Consultation - Neurology 4
-
CONSULTING PHYSICIAN: Jonelle
REFERRING PHYSICIAN: hospitalists
DICTATED BY: Jonelle
DATE/TIME OF REQUEST: 10/04/23
DATE/TIME OF CONSULTATION: 10/04/23 at 1500
Reason for Consultation: seizure
History of Present Illness:
43 year-old male who had a witnessed seizure this morning while in [facility], witnessed by guards; duration unclear; Per records he received Valium and Versed. They report he has a h/o IVDA and 'had seizures in the past when given too much Narcan.'
HCT suggests TBI although he has no clear documented history of this. He was recently admitted with cellulitis and discharged on amoxicillin/TMP-SMX. He also has a history of hyponatremia. No seizures since admission although he mental status has
waxed and waned. He at times will not open his eyes but has been oriented/has no exhibited any muscle weakness. He was slightly less reponsive for about 30 mins prior to my evaluation.
Taken from records/[facility] guards at bedside as patient did not answer detailed questions:
PMH:
?seizure after Narcan administration in the past
HCT suggesting TBI
Recent admission with left lower extremity cellulitis
Drug abuse
Hyponatremia
Social History
Tobacco: Smoker
Alcohol: None
Drug: IVDA
Living: Care Home
Home Medications
�Medication �Instructions �Recorded
amoxicillin 500 mg capsule 500 mg PO Q8H #0 caps 09/27/23
sulfamethoxazole 800 1 tab PO BID #0 tabs 09/27/23
mg-trimethoprim 160 mg tablet
buprenorphine HCl 8 mg sublingual 16 mg sublingual DAILY 10/04/23
tablet
cholecalciferol (vitamin D3) 25 25 mcg PO DAILY 10/04/23
mcg (1,000 unit) tablet (Vitamin
D3)
ibuprofen 200 mg tablet (Advil) 400 mg PO BIDPRN PRN mild pain 10/04/23
Allergies
No Known Allergies Allergy (Unverified 09/23/23 22:58)
Review of Symptoms:
PPer the HPI. I am unable to obtain a complete review of systems�because of patient's inability to provide history.
Vital Signs
Temp Pulse Resp BP Pulse Ox
97.9 F 58 10 111/78 100
10/04/23 15:33 10/04/23 17:00 10/04/23 17:00 10/04/23 17:00 10/04/23 17:00
Lab Results
10/04/23 03:45
Sodium 114 mmol/L (135-145) L* 10/04/23 16:59
Potassium 4.4 mmol/L (3.5-5.1) D 10/04/23 06:19
BUN 11 mg/dl (9-20) 10/04/23 06:19
Glucose 121 mg/dl (70-99) H 10/04/23 06:19
Calcium 9.2 mg/dl (8.4-10.2) 10/04/23 06:19
Ur Buprenorphine Positive (Negative) H 10/04/23 13:40
Physical Exam:
The patient is afebrile, heart sounds S1 and S2 are regular, and chest is clear to auscultation bilaterally.
Neurologic Examination:
The patient is lethargic and but when he opened his eyes and participated in the exam he was oriented x 3. Refused to open his eyes at times. He followed some basic commands; most of his history was taken from the [facility] guards at bedside. No
clear dysarthria or aphasia. On cranial nerve assessment, pupils are 3 mm bilateral, round and reactive to light and accommodation. Visual trinh appeared to be full. Extraocular movements are intact. FThere is no facial asymmetry. Hearing is intact
bilaterally to normal conversation volume. Motor strengths were at least 4/5 bilateral upper and lower extremities on medical research [place] scale; limited in part of cuffs in place on L ankle and BUE soft limb restraints. No drift or involuntary
movement noted. Deep tendon reflexes are 2+ bilateral upper and lower extremities and Babinski is absent bilaterally. Sensations of touch, temperature appeared to be intact bilaterally symmetrical. Coordination testing deferred due to restraints.
Neuro Imaging:
HCT:
No acute intracranial abnormality noted.
Right frontal and left anterior temporal lobe encephalomalacia, consistent with prior traumatic brain injury.
Impression:
MARICEL BILL is a 43 year old M after a seizure witnessed while incarcerated. Guards at bedside are not sure the duration of the event. He was given sedation for the seizure while at the [facility]. No further seizure activity since admission. He
became more confused per nursing compared to earlier in the day about 30 mins prior to my arrival. HCT concerning for TBI. No clear PMH of epilepsy but reportedly had seizures in the past after being given Narcan. This seizure likely provoked by
acute on chronic hyponatremia plus possible effect of abx.
Recommendations:
1. stat EEG
2. no ASD for now as this was likely provoked and is being treated, will wait for EEG review
3. seizure precautions, prn lorazepam for further seizure activity
4. treatment of hyponatremia per nephrology; off abx now
5. MRI brain w/wo when able
6. continue neuro checks
Critical care time 65 mins
Discussed patient care with: patient, nursing, [facility] guards at bedside, nursing building supervisor, neurodiagnostic technologist
--- NOTE | 2023-10-04 20:33 | EEG.RPT ---
Electroencephalogram Report
Recording
Date of EE10/04/23
Type of EEG: Routine
Length of EEG recordin mins
Done with Video Recording: Yes
Patient Status: Inpatient
Recording Conditions: Awake, Drowsy and Asleep
Hyperventilation Performed: No
Photic Stimulation Performed: Yes
Report
METHODS
A 21 channel digitized electroencephalogram was performed at [facility]. The 10/20 international system of electrode placement was used. In addition to EEG, the patient was monitored for EKG. The duration of the recording was 63 minutes.
BACKGROUND
The EEG was diffuse slow to 7-8Hz frequencies with superimposed diffuse polymorphic slowing, 0.5-1 second in duration, 1Hz in frequency. At times diffuse excess beta activity was also seen.
SLEEP
Stage II sleep was obtained and consisted of symmetrical sleep spindles and vertex sharp waves.
PHOTIC STIMULATION
Photic stimulation using a step-strong increase in photic frequency varying from 1-31 Hertz resulted in no driving responses but no appearance of abnormal activity.
CLINICAL EVENTS
None
INTERPRETATION AND CLINICAL CORRELATION
This EEG is abnormal due to the presence of mild diffuse slowing of the background to 7-8Hz frequencies with superimposed diffuse polymorphic slowing, 0.5-1 second in duration, 1Hz in frequency. At times diffuse excess beta activity was also seen.
The study was limited at times by movement and muscle artifact, during which time underlying seizure activity cannot be definitively ruled out.
This study is consistent with mild diffuse cerebral dysfunction with superimposed moderate to severe bursts of diffuse dysfunction, nonspecific in etiology. This can be seen after seizure. Diffuse excess beta activity can be seen due to drug
effect.
--- NOTE | 2023-10-04 22:00 | PTCARENOTE ---
2151 Na lab draw inaccurate due to 3% Na gtt infusing while collecting sample. Will repeat lab.
[2023-10-04 22:17] LABS: Sodium 130 mmol/L (135-145)
[2023-10-05] VITALS (22 sets, daily range): BP systolic 89–116; BP diastolic 39–76; BMI 22.5
[2023-10-05] MEDS: REGLAN 10 MG IV (02:10)
[2023-10-05 02:50] LABS: Sodium 118 mmol/L (135-145)
[2023-10-05 06:50] LABS: Hematocrit 30.5 % (39.0-52.0); Hemoglobin 10.2 g/dL (13.0-18.0); Mean Corp Hgb Conc. 33.4 g/dL (33.0-37.0); Mean Corpuscular Hgb 25.1 pg (27.0-31.0); Mean Corpuscular Volume 75.1 fL (80.0-94.0); Mean Platelet Volume 9.1 fL (7.4-10.4); Platelet Count 205 10^3/uL (130-400); Red Blood Cell Count 4.06 10^6/uL (4.70-6.10); Red Cell Dist. Width 16.7 % (11.5-14.5); White Blood Cell Count 6.6 10^3/uL (4.8-10.8)
[2023-10-05 07:05] LABS: ALT (SGPT) 79 U/L (0-50); AST (SGOT) 63 U/L (17-59); Albumin 3.1 g/dl (3.5-5.0); Alkaline Phosphatase 130 U/L (38-126); Direct Bilirubin 0.3 mg/dl (0.0-0.4); Magnesium 1.5 mg/dl (1.6-2.3); Phosphorus 3.7 mg/dl (2.5-4.5); Total Bilirubin 0.6 mg/dl (0.2-1.3); Total Protein 6.8 g/dl (6.3-8.2)
[2023-10-05 07:23] LABS: Sodium 115 mmol/L (135-145)
--- NOTE | 2023-10-05 07:35 | W.PN.INTV ---
Today's Communication / Plan
Recommendations
Asp precs
Tolvaptan
prn lorazepam IV
Buprenorphine
Assessment
-
Assessment:
Mr Gerald Rashid is a 43/M inmate adm early AM 10-03 with sz event witnessed by EMS personnel (tonic clonic movements). Given IV valium and versed. [facility] Known h/o IVDU, recent adm to 09-23 to , coming from nursing home for LLE
cellulitis, hyponatremia/SIADH, vit D deficiency (negative TTE for IE), d/c on amoxicillin/TMP-SMX
Impression:
Seizure event
Acute on chronic hyponatremia, SIADH
Adm serum Na 113
Resolved lactacidemia
Improved subacute transaminitis
Negative PCT
Elevated TSH (normal on 09-23 at 2.75)
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
IVDU, on chronic buprenorphine/naloxone
LLE cellulitis, hyponatremia/SAIDH, adm early September 2023
Vit D deficiency
Smoker
Inmate
Plan:
Witnessed sz event at nursing home, apparently first event, not on a-sz meds KILN CLEANER
Likely due to acute on chronic hyponatremia, adm serum Na 113 (recent adm Na 122-125)
Unclear precipitating event. Denies access to illicit drugs for last 2 m since in nursing home
Head CT 10-04-23: no acute findings. R frontal and L anterior temporal lobe encephalomalacia (c/w TBI)
O2 protocol as needed
Resp strong comfortable on RA, POx 99%
Asp precs
Monitor MS and sz
Neurology following
EEG with nonspecific mild diffuse cerebral dysfunction, could not completely rule out underlying sz
prn lorazepam IV
S/p 3% saline x2
Adm serum Na 113
Serum Na has oscillated from 113 to 130 last night, currently at 115
Tolvaptan dosing today
Fluid restriction
Nephrology following
GI and DVT prophylaxis
Observe off atbs
Apparently completed atbs for recent LLE cellulitis while back in nursing home
On police custody
Critical care time: 45 min
Subjective Dataa
Subjective Data
Date of Service:
Date of Service: October 05, 2023
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
Subjective:
No major events reported overnight
EEG yesterday showed no strong evidence of seizures but could not rule it out completely
At least clinically, patient has not presented obvious seizure activity since admission to the ICU
Feels better today, somewhat hungry, cooperative
Review of Systems
General: Fever (n), Sweats (n) and Chills (n)
HEENT: Dysphagia (n)
Cardiopulmonary: Dyspnea (n), Cough (n) and Chest Pain
GI: Abdominal Pain (n), Nausea and Vomiting (n)
Neuro: Weakness
Objective Data
Data Reviewed
Vital Signs / I&O / Oxygen:
Vital Signs
Temp Pulse Resp BP Pulse Ox
99.1 F 69 10 96/68 100
10/05/23 03:18 10/05/23 07:30 10/05/23 07:30 10/05/23 07:00 10/05/23 07:00
Intake and Output
10/04/23 10/05/23 10/06/23
06:59 06:59 06:59
Intake Total 580 / 580 0 / 0
Output Total 2725 / 2725
Balance -2145 / -2145 0 / 0
SaO2 100
Physical Exam
General: Comfortable
HEENT: Normocephalic and Moist Mucous Membranes
Cardiovascular: Regular Rhythm, Murmur (n) and Peripheral Edema (n)
Respiratory: Clear, Non-Labored Respirations and Stridor (n)
GI: Soft, Non Distended and Non Tender
Neurology: Awake, AO x 3 and No Motor Deficits
Skin: Warm
Labs/Micro/Reports
Lab Data
10/05/23 06:30
10/05/23 07:07
Microbiology
10/04/23 05:37 Blood/Venous Blood Culture - Preliminary
No Growth in 24 hours- Final report to follow
10/04/23 05:37 Blood/Venous Blood Culture - Preliminary
No Growth in 24 hours- Final report to follow
[2023-10-05 07:51] LABS: Blood Urea Nitrogen 9 mg/dl (9-20); Calcium 8.3 mg/dl (8.4-10.2); Carbon Dioxide 22 mmol/L (22-30); Chloride 92 mmol/L (98-107); Estimated Creatinine Clearance > 125 ml/min; Glucose 80 mg/dl (70-99); Potassium 4.9 mmol/L (3.5-5.1); eGFR > 60.00
[2023-10-05] MEDS: NSS (PRESERVATIVE FREE) 10 ML IV (07:57)
[2023-10-05] MEDS: PROTONIX IV 40 MG IV (07:57)
[2023-10-05] MEDS: SUBUTEX 16 MG SL (07:57)
--- NOTE | 2023-10-05 08:20 | W.PN.NEPH.PH ---
Today's Communication / Plan
-
tolvaptan
Assessment/Plan
-
Impression:
Hyponatremia with seizure
Polysubstance abuse
Left lower leg cellulitis currently on amoxicillin and Bactrim
Plan:
-Maintain fluid restriction
-sodium down to 115
-will give 15mg tolvaptan today as repeated 3% saline has failed
-Urine osmolality of 761 consistent with SIADH
-He is currently hemodynamically stable
-Patient is critically ill postictal from seizure in setting of euvolemic
-Patient will require 1200 cc fluid restriction when p.o.
-32 minutes critical care time spent with
-
-
Date of Service: October 05, 2023
CC / HPI / ROS
-
Chief Complaint:
Hyponatremia
History of Present Illness:
serum sodium down to 115 despite 3% times two
Review of Systems:
uop >3Liters
Labs
-
Labs:
WBC 6.6 10^3/uL (4.8-10.8) 10/05/23 06:30
RBC 4.06 10^6/uL (4.70-6.10) L 10/05/23 06:30
Hgb 10.2 g/dL (13.0-18.0) L 10/05/23 06:30
Hct 30.5 % (39.0-52.0) L 10/05/23 06:30
Plt Count 205 10^3/uL (130-400) D 10/05/23 06:30
Sodium Cancelled 10/05/23 07:07
Potassium 4.9 mmol/L (3.5-5.1) 10/05/23 06:30
Chloride 92 mmol/L (98-107) L 10/05/23 06:30
Carbon Dioxide 22 mmol/L (22-30) 10/05/23 06:30
BUN 9 mg/dl (9-20) 10/05/23 06:30
Creatinine 0.6 mg/dL (0.7-1.3) L 10/05/23 06:30
eGFR > 60.00 10/05/23 06:30
Glucose 80 mg/dl (70-99) 10/05/23 06:30
Calcium 8.3 mg/dl (8.4-10.2) L 10/05/23 06:30
Phosphorus 3.7 mg/dl (2.5-4.5) 10/05/23 06:30
Albumin 3.1 g/dl (3.5-5.0) L 10/05/23 06:30
Physical Exam
-
Vital Signs:
Vital Signs
Temp Pulse Resp BP Pulse Ox
99.1 F 69 10 96/68 100
10/05/23 03:18 10/05/23 07:30 10/05/23 07:30 10/05/23 07:00 10/05/23 07:00
Cardiovascular:: Regular rate and rhythm
Respiratory:: Bilateral: CTA
Lung Excursion:: Normal
Abdomen:: Nontender and Soft
Bowel Sounds:: Normal
Extremity Edema:: None: Bilateral:
--- NOTE | 2023-10-05 08:20 | PTCARENOTE ---
Assumed care of patient at 0645 after receiving report. Assessment completed and documented in shift assessment. Patient continues to be NPO with sips of clears for medications. Patient is appropriate, pleasant and follows all commands. L FA IV
Patent. Notified attending provider and darkroom worker control analyst of Na 115. Discussed with VAT team about potential midline placement considering hyponatremia and frequent lab draws/potential hypertonic saline administration.
Patient is here as a forensic, police personnel at bedside.
[2023-10-05] MEDS: SAMSCA 15 MG PO (08:56)
--- NOTE | 2023-10-05 10:23 | VATNOTE ---
Called by PCN to assess for possible midline placement. Pt's R arm looked to have multiple options for IV access and lab draws. PCN will discuss with nephrology regarding plan of care to determine if midline is needed before a decision is made, but
at this time PCN is in agreement that midline is not needed. Pt needs lab work at 1300, will return around 1300 for 2nd IV placement and lab draw.
--- NOTE | 2023-10-05 12:00 | PTCARENOTE ---
Assessment unchanged from prior unless documented below.
[2023-10-05 13:49] LABS: Carbon Dioxide 21 mmol/L (22-30); Chloride 93 mmol/L (98-107); Potassium 4.7 mmol/L (3.5-5.1); Sodium 120 mmol/L (135-145)
[2023-10-05] MEDS: TYLENOL 650 MG PO ×2 (14:04→19:07)
--- NOTE | 2023-10-05 14:20 | W.PN.HOSP.TC ---
Today's Communication/Plan
-
tolvaptan
Assessment / Plan
Assessment / Plan
Physical Exam
General: Other (43y M appears older than stated age. )
HEENT: Other (Extremely poor dentition. Laceration to the R tongue with some evidence of bleeding.)
Respiratory: Clear; No Wheezes, Rales or Rhonchi
Cardiac: S1/S2 and Regular Rhythm; No Murmur
GI: Soft, Non Tender, Non Distended and Normal Bowel Sounds
Musculoskeletal: No Clubbing, No Cyanosis and Other (LLE appears significantly improved from prior.)
Neuro: Sedated
A/P: Patient is a 43y M with PMH significant for substance abuse who presents to ED from intermediate for evaluation of seizure activity.
Seizure Activity
Lactic Acidosis secondary to the above
Post-Ictal Agitation secondary to the above
�Most likely secondary to hyponatremia
-appreciate Neuro, Nephro recs
-EEG: mild diffuse cerebral dysfunction with superimposed moderate to severe bursts of diffuse dysfunction, nonspecific in etiology. This can be seen after seizure. Diffuse excess beta activity can be seen due to drug effect.
- MRI brain with no obvious acute pathology
-Fix metabolic derangements
-Speech eval, can tolerate PO
Severe Hyponatremia
- Na on arrival was 113.
- Tolvaptan
- follow-up nephrology recommendations during prior admission seemed to have a plateau around 125 - increased after Samsca dose.
- ? worsening hyponatremia due to Bactrim which he was taking for cellulitis.
- Hold further abx.
- Follow for clinical improvement coincident with improvement in hyponatremia.
- tolerating PO - 1200 cc fluid restriction
Recent LLE Cellulitis
- Remains on amoxicillin and Bactrim - completed
- Will hold further abx as noted above.
- Appears significantly improved from prior.
- Follow for any new changes.
Polysubstance Abuse
- Patient with prior history of IVDA and intranasal Fentanyl use.
-UDS pos for buprenorphine and benzos
#Transaminitis
-possibly 2/2 to abx v seizure
-trending down
-ctm
Hypomagnesemia
� Monitor and replete
Hypovitaminosis D
- Resume Vit D supplementation once patient awake / alert.
DVT Prophylaxis: SCDs, DVT ppx as per icu
Code Status: Full
Total time spent on today's encounter was 50 minutes which included time spent in counseling the patient/family regarding diagnosis and treatment plan as listed above, goals of care, and symptom management. Case was discussed with nursing staff,
specialists, and care coordinators/case management. All labs and imaging personally reviewed by me. Remainder the time spent in detailed review of previous records, lab data, imaging, and other medical provider documentation.
Anticipated Discharge: > 48 hours
Subjective/Interval History
-
Date of Service: October 05, 2023
No acute events overnight
Objective Data
-
Labs:
Laboratory Results
10/05/23 10/05/23 10/05/23
02:05 06:30 07:07
WBC 6.6
Hgb 10.2 L
Hct 30.5 L
Plt Count 205 D
Sodium 118 L* D 115 L* Cancelled
Potassium 4.9
Chloride 92 L
Carbon Dioxide 22
BUN 9
Creatinine 0.6 L
Glucose 80
Calcium 8.3 L
Total Bilirubin 0.6
AST 63 H
ALT 79 H
Alkaline Phosphatase 130 H
10/05/23
13:19
WBC
Hgb
Hct
Plt Count
Sodium 120 L
Potassium 4.7
Chloride 93 L
Carbon Dioxide 21 L
BUN
Creatinine
Glucose
Calcium
Total Bilirubin
AST
ALT
Alkaline Phosphatase
Vital Signs:
Vital Signs
Temp Pulse Resp BP Pulse Ox
98.4 F 91 12 104/61 98
10/05/23 11:14 10/05/23 13:00 10/05/23 13:00 10/05/23 10:00 10/05/23 10:30
I&O
10/04/23 10/05/23 10/06/23
06:59 06:59 06:59
Intake Total 580 / 580 120 / 120
Output Total 2725 / 2725 350 / 350
Balance -2145 / -2145 -230 / -230
Review of Systems
-
History Source: Patient
All other systems: Not reviewed unless documented
Data Reviewed
-
CT Scan: Image personally visualized and interpreted and Report Reviewed by me
MRI: Report Reviewed by me
Labs: Labs Reviewed by me
[2023-10-05] MEDS: MAGNESIUM SULFATE 100 IV (15:15)
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
[2023-10-05] MEDS: LIORESAL 10 MG PO (19:07)
--- NOTE | 2023-10-05 20:00 | PTCARENOTE ---
Resumed care of pt this evening. Received pt with improved mentation. Pt follows commands appropriately and can make needs known. 1200 fluid restriction upheld. VSS.
[2023-10-05 21:06] LABS: Blood Urea Nitrogen 12 mg/dl (9-20); Calcium 8.6 mg/dl (8.4-10.2); Carbon Dioxide 20 mmol/L (22-30); Chloride 100 mmol/L (98-107); Estimated Creatinine Clearance 116 ml/min; Glucose 92 mg/dl (70-99); Potassium 4.8 mmol/L (3.5-5.1); Sodium 125 mmol/L (135-145); eGFR > 60.00
[2023-10-06] VITALS (16 sets, daily range): BP systolic 93–123; BP diastolic 49–94; BMI 20.8
[2023-10-06 06:07] LABS: Hematocrit 35.8 % (39.0-52.0); Hemoglobin 11.7 g/dL (13.0-18.0); Mean Corp Hgb Conc. 32.7 g/dL (33.0-37.0); Mean Corpuscular Volume 76.5 fL (80.0-94.0); Mean Platelet Volume 8.7 fL (7.4-10.4); Platelet Count 292 10^3/uL (130-400); Red Blood Cell Count 4.68 10^6/uL (4.70-6.10); Red Cell Dist. Width 17.7 % (11.5-14.5); White Blood Cell Count 6.1 10^3/uL (4.8-10.8)
[2023-10-06 06:53] LABS: Blood Urea Nitrogen 14 mg/dl (9-20); Calcium 9.7 mg/dl (8.4-10.2); Carbon Dioxide 22 mmol/L (22-30); Chloride 105 mmol/L (98-107); Estimated Creatinine Clearance 94 ml/min; Glucose 75 mg/dl (70-99); Magnesium 2.5 mg/dl (1.6-2.3); Potassium 5.4 mmol/L (3.5-5.1); Sodium 136 mmol/L (135-145); eGFR > 60.00
[2023-10-06] MEDS: SUBUTEX 16 MG SL (08:08)
--- NOTE | 2023-10-06 08:18 | W.PN.INTV ---
Today's Communication / Plan
Recommendations
Trend serum Na
Resume seroquel
Given slight rise in sNa today, I will give D5W for 6 hours; recheck BMp tonight
sNa still >120-125 and pt ASx + stable. Nephro following
Downgrade out of ICU to telemetry.
Critical care/Pulmonary service will now sign off. Please reconsult if there are any additional questions/concerns, or if patient's respiratory status deteriorates.
Assessment
-
Assessment:
Mr Gerald Rashid is a 43/M inmate adm early AM 10-03 with sz event witnessed by EMS personnel (tonic clonic movements). Given IV valium and versed. Arrived at [facility]. Known h/o IVDU, recent adm to 09-23 to 24, [facility] from [facility] for LLE
cellulitis, hyponatremia/SIADH, vit D deficiency (negative TTE for IE), d/c on amoxicillin/TMP-SMX
Impression:
Seizure event
Acute on chronic hyponatremia, SIADH
Adm serum Na 113 -> 134 this AM
Resolved lactacidemia
Improved subacute transaminitis
Negative PCT
Elevated TSH (normal on 09-23 at 2.75)
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
IVDU, on chronic buprenorphine/naloxone
LLE cellulitis, hyponatremia/SAIDH, adm early September 2023
Vit D deficiency
Smoker
Inmate
Plan:
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
Likely due to acute on chronic hyponatremia, adm serum Na 113 (recent adm Na 122-125)
Unclear precipitating event. Denies access to illicit drugs for last 2 m since in [facility]
Head CT 10-04-23: no acute findings. R frontal and L anterior temporal lobe encephalomalacia (c/w TBI)
O2 protocol as needed
Resp strong comfortable on RA, POx 99%
Asp precs
Monitor MS and sz
Neurology following
EEG with nonspecific mild diffuse cerebral dysfunction with superimposed moderate to severe bursts of diffuse dysfunction, nonspecific in etiology. Could not completely rule out underlying sz
prn lorazepam IV
S/p 3% saline x2
Adm serum Na 113
Serum Na has oscillated from 113 to 130 last night, currently at 134
Tolvaptan dosing on 10/05/2023
Fluid restriction (1200mL/day)
Nephrology following
GI and DVT prophylaxis
Observe off atbs
Apparently completed atbs for recent LLE cellulitis while back in [facility]
On police custody
Downgrade out of ICU to telemetry.
Critical care/Pulmonary service will now sign off. Thank you for allowing us to be involved in the care of this patient. Please reconsult if there are any additional questions/concerns, or if patient's respiratory status deteriorates.
Total time spent today was 55 minutes for this encounter. Time includes reviewing laboratory test/imaging results, reviewing pertinent medical records, obtaining and reviewing medical history, performing an appropriate exam, ordering medications,
tests and procedures. Time also includes documentation of this encounter, coordinating patient care and communicating with other healthcare professionals. Total time does not include separately billed tests performed on this date of service.
Data:
Brain MRI 10-05-2023:
No acute infarct.
Findings most consistent with remote traumatic brain injury involving the inferior frontal lobe region, left greater than right, and anterior left temporal lobe.
There are a few scattered isolated foci of T2/FLAIR signal intensity involving the cerebral white matter which are nonspecific.
No mass effect. No abnormal enhancement.
Subjective Dataa
Subjective Data
Date of Service:
Date of Service: October 06, 2023
Chief Complaint: Dental Assistant Medical Assistant Follow Up
Subjective:
Patient seen and evaluated this morning. Sitting in bed on room air breathing comfortably. BP 118/67, heart rate 84. Patient feels well and has no complaints currently. Denies chest pain, headache, fevers or chills.
Review of Systems
General: Other (Negative unless mentioned above)
Objective Data
Data Reviewed
Vital Signs / I&O / Oxygen:
Vital Signs
Temp Pulse Resp BP Pulse Ox
98 F 83 13 116/92 99
10/06/23 07:22 10/06/23 08:00 10/06/23 08:00 10/06/23 08:00 10/06/23 08:00
Intake and Output
10/05/23 10/06/23 10/07/23
06:59 06:59 06:59
Intake Total 580 / 580 1110 / 1110
Output Total 2725 / 2725 3130 / 3130 700 / 700
Balance -2145 / -214 -2020 / -2020 -700 / -700
SaO2 99
Physical Exam
General: Comfortable
HEENT: Normocephalic, Anicteric and Moist Mucous Membranes
Cardiovascular: S1-S2, Murmur (n) and Peripheral Edema (n)
Respiratory: Clear, Wheeze (n), Crackles (n), Rhonchi (n), Non-Labored Respirations and Stridor (n)
GI: Soft, Non Distended and Non Tender
Neurology: AO x 3 and No Motor Deficits
Skin: Warm and Dry
Labs/Micro/Reports
Lab Data
10/06/23 05:40
Microbiology
10/04/23 05:37 Blood/Venous Blood Culture - Preliminary
No Growth in 48 hours- Final report to follow
10/04/23 05:37 Blood/Venous Blood Culture - Preliminary
No Growth in 48 hours- Final report to follow
[2023-10-06] MEDS: NSS (PRESERVATIVE FREE) IV (08:49)
[2023-10-06] MEDS: PROTONIX IV IV (08:49)
[2023-10-06] MEDS: PROTONIX 40 MG PO (08:57)
--- NOTE | 2023-10-06 09:36 | W.PN.NEPH.PH ---
Today's Communication / Plan
-
follow BMP
Assessment/Plan
-
Impression:
Hyponatremia with seizure
Polysubstance abuse
Left lower leg cellulitis currently on amoxicillin and Bactrim
Plan:
-Maintain fluid restriction
-repeat BMP this am
-follow UOP
-check Uosm
-
-
Date of Service: October 06, 2023
CC / HPI / ROS
-
Chief Complaint:
Hyponatremia
History of Present Illness:
Na up to 136 after [facility] 10/04
BPs stable
good UOP
Review of Systems:
no CP/SOB
Labs
-
Labs:
WBC 6.1 10^3/uL (4.8-10.8) 10/06/23 05:40
RBC 4.68 10^6/uL (4.70-6.10) L 10/06/23 05:40
Hgb 11.7 g/dL (13.0-18.0) L 10/06/23 05:40
Hct 35.8 % (39.0-52.0) L 10/06/23 05:40
Plt Count 292 10^3/uL (130-400) D 10/06/23 05:40
eGFR > 60.00 10/06/23 05:40
Phosphorus 3.7 mg/dl (2.5-4.5) 10/05/23 06:30
Albumin 3.1 g/dl (3.5-5.0) L 10/05/23 06:30
Physical Exam
-
Vital Signs:
Vital Signs
Temp Pulse Resp BP Pulse Ox
98 F 83 13 116/92 99
10/06/23 07:22 10/06/23 08:00 10/06/23 08:00 10/06/23 08:00 10/06/23 08:00
Cardiovascular:: Regular rate and rhythm
Respiratory:: Bilateral: CTA
Lung Excursion:: Normal
Abdomen:: Nontender and Soft
Bowel Sounds:: Normal
Extremity Edema:: None: Bilateral:
[2023-10-06] MEDS: TYLENOL 650 MG PO ×3 (09:42→21:44)
[2023-10-06 11:13] LABS: Osmolality Urine 337 mOsm/kg (300-900)
[2023-10-06 11:22] LABS: Urine Sodium 103 mmol/L (30-90)
[2023-10-06 11:38] LABS: Blood Urea Nitrogen 11 mg/dl (9-20); Calcium 9.4 mg/dl (8.4-10.2); Carbon Dioxide 20 mmol/L (22-30); Chloride 105 mmol/L (98-107); Estimated Creatinine Clearance 107 ml/min; Glucose 95 mg/dl (70-99); Potassium 5.2 mmol/L (3.5-5.1); Sodium 134 mmol/L (135-145); eGFR > 60.00
--- NOTE | 2023-10-06 14:58 | W.PN.HOSP.TC ---
Today's Communication/Plan
-
seroquel
monitor na, f/u nephro recs
Assessment / Plan
Assessment / Plan
Physical Exam
General: Other (43y M appears older than stated age. )
HEENT: Other (Extremely poor dentition. Laceration to the R tongue with some evidence of bleeding.)
Respiratory: Clear; No Wheezes, Rales or Rhonchi
Cardiac: S1/S2 and Regular Rhythm; No Murmur
GI: Soft, Non Tender, Non Distended and Normal Bowel Sounds
Musculoskeletal: No Clubbing, No Cyanosis and Other (LLE appears significantly improved from prior.)
Neuro: Sedated
A/P: Patient is a 43y M with PMH significant for substance abuse who presents to ED from long term for evaluation of seizure activity.
Seizure Activity
Lactic Acidosis secondary to the above
Post-Ictal Agitation secondary to the above
�Most likely secondary to hyponatremia
-appreciate Neuro, Nephro recs
-EEG: mild diffuse cerebral dysfunction with superimposed moderate to severe bursts of diffuse dysfunction, nonspecific in etiology. This can be seen after seizure. Diffuse excess beta activity can be seen due to drug effect.
- MRI brain with no obvious acute pathology
-Fix metabolic derangements
-Speech eval, can tolerate PO
Severe Hyponatremia
- Na on arrival was 113 - now 134
- s/p Tolvaptan
- follow-up nephrology recommendations during prior admission seemed to have a plateau around 125 - increased after Samsca dose.
- ? worsening hyponatremia due to Bactrim which he was taking for cellulitis.
- Hold further abx.
- Follow for clinical improvement coincident with improvement in hyponatremia.
- tolerating PO - 1200 cc fluid restriction
Recent LLE Cellulitis
- Remains on amoxicillin and Bactrim - completed
- Will hold further abx as noted above.
- Appears significantly improved from prior.
- Follow for any new changes.
Polysubstance Abuse
- Patient with prior history of IVDA and intranasal Fentanyl use.
-UDS pos for buprenorphine and benzos
#Transaminitis
-possibly 2/2 to abx v seizure
-trending down
-ctm
Hypomagnesemia
� Monitor and replete
Hypovitaminosis D
- Resume Vit D supplementation once patient awake / alert.
Depression
requesting to add back seroquel
-monitor qtc closely
DVT Prophylaxis: SCDs, DVT ppx as per icu
Code Status: Full
Total time spent on today's encounter was 45 minutes which included time spent in counseling the patient/family regarding diagnosis and treatment plan as listed above, goals of care, and symptom management. Case was discussed with nursing staff,
specialists, and care coordinators/case management. All labs and imaging personally reviewed by me. Remainder the time spent in detailed review of previous records, lab data, imaging, and other medical provider documentation.
Anticipated Discharge: 24 - 48 hours
Subjective/Interval History
-
Date of Service: October 06, 2023
no acute events
Objective Data
-
Labs:
Laboratory Results
10/06/23 10/06/23
05:40 10:55
WBC 6.1
Hgb 11.7 L
Hct 35.8 L
Plt Count 292 D
Sodium 136 D 134 L
Potassium 5.4 H 5.2 H
Chloride 105 105
Carbon Dioxide 22 20 L
BUN 14 11
Creatinine 0.8 0.7
Glucose 75 95
Calcium 9.7 9.4
Vital Signs:
Vital Signs
Temp Pulse Resp BP Pulse Ox
98.2 F 78 13 118/67 98
10/06/23 12:00 10/06/23 12:30 10/06/23 12:30 10/06/23 10:00 10/06/23 12:00
I&O
10/05/23 10/06/23 10/07/23
06:59 06:59 06:59
Intake Total 580 / 580 1110 / 1110 600 / 600
Output Total 2725 / 2725 3130 / 3130 1400 / 1400
Balance -2145 / -214 -2019 / -2019 -800 / -800
Review of Systems
-
History Source: Patient
All other systems: Not reviewed unless documented
Data Reviewed
-
CT Scan: Image personally visualized and interpreted and Report Reviewed by me
MRI: Report Reviewed by me
Labs: Labs Reviewed by me
--- NOTE | 2023-10-06 15:02 | PTCARENOTE ---
Patient received in AM with assessment as noted. Continues awake and alert with a pleasant affect. NSR on monitor. Afebrile. B/P's stable. Lungs CTA. Sao2 99% on room air. Appetite good. No bowel movement today. Voiding ad mahogany. Urine and follow up
BMP obtained and sent to lab. Na stable at 134. Patient for probable transfer to Telemetry today. Patient currently in bed with call soler in reach and 2 guards present.
[2023-10-06] MEDS: LOVENOX 40 MG SC (17:38)
--- NOTE | 2023-10-06 17:53 | PTCARENOTE ---
Results AM labs: Na 134. Patient asked to drink 2000 ml water between 1630 and 2100 in an effort to lower his Na. Patient compliant and drank 480 ml water as of 1715. All other assessment data as previously noted. For transfer to telemetry when a
bed is available.
--- NOTE | 2023-10-06 20:00 | PTCARENOTE ---
Assumed care of patient. Patient AOx3 , laying comfortably in bed. patient assessed, see worklist. Patient due for BMP at 2100, per dayshift RN, plan for him to drink 2Liters of water to help bring down Na level. Made pt aware of plan. Patient has
no questions, safety maintained, call soler within reach. 2 guards bedside. Will continue to monitor.
[2023-10-06] MEDS: SEROQUEL 25 MG PO (21:44)
[2023-10-06 21:47] LABS: Blood Urea Nitrogen 14 mg/dl (9-20); Calcium 8.8 mg/dl (8.4-10.2); Carbon Dioxide 21 mmol/L (22-30); Chloride 104 mmol/L (98-107); Estimated Creatinine Clearance 94 ml/min; Glucose 114 mg/dl (70-99); Potassium 4.5 mmol/L (3.5-5.1); Sodium 130 mmol/L (135-145); eGFR > 60.00
[2023-10-07 04:40] VITALS: BP 116/68
[2023-10-07 05:02] LABS: Hematocrit 29.7 % (39.0-52.0); Hemoglobin 10.1 g/dL (13.0-18.0); Mean Corpuscular Hgb 25.6 pg (27.0-31.0); Mean Corpuscular Volume 75.4 fL (80.0-94.0); Mean Platelet Volume 8.6 fL (7.4-10.4); Platelet Count 199 10^3/uL (130-400); Red Blood Cell Count 3.94 10^6/uL (4.70-6.10); Red Cell Dist. Width 17.7 % (11.5-14.5); White Blood Cell Count 4.6 10^3/uL (4.8-10.8)
[2023-10-07 05:47] LABS: Blood Urea Nitrogen 13 mg/dl (9-20); Calcium 9.1 mg/dl (8.4-10.2); Carbon Dioxide 21 mmol/L (22-30); Chloride 104 mmol/L (98-107); Estimated Creatinine Clearance 125 ml/min; Glucose 91 mg/dl (70-99); Magnesium 1.7 mg/dl (1.6-2.3); Phosphorus 5.1 mg/dl (2.5-4.5); Potassium 4.5 mmol/L (3.5-5.1); Sodium 130 mmol/L (135-145); eGFR > 60.00
[2023-10-07 06:00] VITALS: BMI 21.5
[2023-10-07] MEDS: SUBUTEX 16 MG SL (07:43)
[2023-10-07] MEDS: TYLENOL 650 MG PO ×2 (07:47→17:46)
--- NOTE | 2023-10-07 09:00 | PTCARENOTE ---
Assumed care of patient. AAOx4, SR on monitor, on room air, on a regular diet, using urinal. Assessment benign minus ecchymosis and scabs on arms and legs. Reviewed sodium level with rn cardiac. Madhu ordered. Patient written for tele.
potential d/c. Will reach out to hospitalist.
--- NOTE | 2023-10-07 09:25 | W.PN.NEPH.PH ---
Today's Communication / Plan
-
FR
Assessment/Plan
-
Impression:
Hyponatremia with seizure
Polysubstance abuse
Left lower leg cellulitis currently on amoxicillin and Bactrim
Plan:
-Maintain fluid restriction-reinforced
-follow BMP
-follow UOP
-samsca today
-
-
Date of Service: October 07, 2023
CC / HPI / ROS
-
Chief Complaint:
Hyponatremia
History of Present Illness:
Na 130, but drank 2+ L overnight
BPs stable
good UOP
Review of Systems:
no CP/SOB
Labs
-
Labs:
WBC 4.6 10^3/uL (4.8-10.8) L 10/07/23 04:46
RBC 3.94 10^6/uL (4.70-6.10) L 10/07/23 04:46
Hgb 10.1 g/dL (13.0-18.0) L 10/07/23 04:46
Hct 29.7 % (39.0-52.0) L 10/07/23 04:46
Plt Count 199 10^3/uL (130-400) D 10/07/23 04:46
Sodium 130 mmol/L (135-145) L 10/07/23 04:46
Potassium 4.5 mmol/L (3.5-5.1) 10/07/23 04:46
Chloride 104 mmol/L (98-107) 10/07/23 04:46
Carbon Dioxide 21 mmol/L (22-30) L 10/07/23 04:46
BUN 13 mg/dl (9-20) 10/07/23 04:46
Creatinine 0.6 mg/dL (0.7-1.3) L 10/07/23 04:46
eGFR > 60.00 04/23/24 04:46
Glucose 91 mg/dl (70-99) 10/07/23 04:46
Calcium 9.1 mg/dl (8.4-10.2) 10/07/23 04:46
Phosphorus 5.1 mg/dl (2.5-4.5) H 10/07/23 04:46
Albumin 3.1 g/dl (3.5-5.0) L 10/05/23 06:30
Physical Exam
-
Vital Signs:
Vital Signs
Temp Pulse Resp BP Pulse Ox
97.0 F 65 20 116/68 98
10/07/23 08:13 10/07/23 04:40 10/06/23 23:51 10/07/23 04:40 10/06/23 16:00
Cardiovascular:: Regular rate and rhythm
Respiratory:: Bilateral: Coarse
Lung Excursion:: Normal
Abdomen:: Nontender and Soft
Bowel Sounds:: Normal
Extremity Edema:: None: Bilateral:
[2023-10-07 10:05] VITALS: BP 106/73
[2023-10-07] MEDS: SAMSCA 7.5 MG PO (10:32)
--- NOTE | 2023-10-07 10:49 | CM ---
CM following re: discharge planning.
Reviewed pt's chart, met with pt. Two guards at bedside.
Pt is a 43 year old male, admitted with primary dx of Seizure with PMH significant for substance abuse.
[place] [facility] and per guards pt will remain under the custody of [facility] at discharge.
[facility] nursing report: [phone]
Discharge instructions fax: [phone]
D/C plan: return back to [facility] when medically stable. Guards to transport at discharge.
CM will follow with discharge plan updates as hospitalization progresses
--- NOTE | 2023-10-07 11:29 | PN.CDI ---
CDI
- -
CDI:
Physician Documentation Request
Admit Date: 10/04/23 06:34
Dear Doctor Valerie,
Please review the following and provide your response in the progress notes.
Clinical Indicators:
- 10/05 PN 'Severe Hyponatremia'
- 'Na on arrival was 113 - now 134'
- 'tolerating PO - 1200 cc fluid restriction'
- 10/05 Stained Glass Glazier 'Acute on chronic hyponatremia, SIADH'
- 10/03 Nephrology 'Urine osmolality of 761 consistent with SIADH'
- Samsca given x 2
Please clarify the diagnosis with the above findings including the use of Samsca:
SIADH
Hyponatremia only
Other
Use of terms such as suspected, likely, concern for, or probable (associated with a specific diagnosis that is being evaluated, monitored, or treated as if it exists) are acceptable and can be coded in the inpatient setting, when documented at the
time of discharge.
Thank you,
Marcos Harvey RN
CDI Specialist
Please use your independent medical judgment in providing your response.
--- NOTE | 2023-10-07 11:40 | PN.CDI ---
CDI
- -
CDI:
Physician Documentation Request
Admit Date: 10/04/23 06:34
Dear Doctor Valerie,
Please review the following and provide your response in the progress notes.
Clinical Indicators:
- 10/05 PN 'Seizure Activity...Post-Ictal Agitation'
- 'Polysubstance Abuse...UDS pos for buprenorphine and benzos'
- 10/03 RN Note 'Received patient on stretcher with [address]'
Please clarify the diagnosis with the above findings.
Metabolic encephalopathy
Toxic metabolic encephalopathy
Acute or subacute confusional state due to seizure
Other
Use of terms such as suspected, likely, concern for, or probable (associated with a specific diagnosis that is being evaluated, monitored, or treated as if it exists) are acceptable and can be coded in the inpatient setting, when documented at the
time of discharge.
Thank you,
Marcos Harvey RN
CDI Specialist
Please use your independent medical judgment in providing your response.
[2023-10-07 13:09] VITALS: BP 115/84
--- NOTE | 2023-10-07 14:25 | W.PN.HOSP.TC ---
Today's Communication/Plan
-
samsca
monitor sodium
Assessment / Plan
Assessment / Plan
Physical Exam
General: Other (43y M appears older than stated age. )
HEENT: Other (Extremely poor dentition. Laceration to the R tongue with some evidence of bleeding.)
Respiratory: Clear; No Wheezes, Rales or Rhonchi
Cardiac: S1/S2 and Regular Rhythm; No Murmur
GI: Soft, Non Tender, Non Distended and Normal Bowel Sounds
Musculoskeletal: No Clubbing, No Cyanosis and Other (LLE appears significantly improved from prior.)
Neuro: Sedated
A/P: Patient is a 43y M with PMH significant for substance abuse who presents to ED from group home for evaluation of seizure activity.
Seizure Activity
Lactic Acidosis secondary to the above
Post-Ictal Agitation secondary to the above
�Most likely secondary to hyponatremia
-appreciate Neuro, Nephro recs
-EEG: mild diffuse cerebral dysfunction with superimposed moderate to severe bursts of diffuse dysfunction, nonspecific in etiology. This can be seen after seizure. Diffuse excess beta activity can be seen due to drug effect.
- MRI brain with no obvious acute pathology
-Fix metabolic derangements
-Speech eval, can tolerate PO
Severe Hyponatremia
- Na on arrival was 113 - now 134
- s/p Tolvaptan
- follow-up nephrology recommendations during prior admission seemed to have a plateau around 125 - increased after Samsca dose.
- ? worsening hyponatremia due to Bactrim which he was taking for cellulitis.
- Hold further abx.
- Follow for clinical improvement coincident with improvement in hyponatremia.
- tolerating PO - 1200 cc fluid restriction
� Samsca today
Recent LLE Cellulitis
- Remains on amoxicillin and Bactrim - completed
- Will hold further abx as noted above.
- Appears significantly improved from prior.
- Follow for any new changes.
Polysubstance Abuse
- Patient with prior history of IVDA and intranasal Fentanyl use.
-UDS pos for buprenorphine and benzos
#Transaminitis
-possibly 2/2 to abx v seizure
-trending down
-ctm
Hypomagnesemia
� Monitor and replete
Hypovitaminosis D
- Resume Vit D supplementation once patient awake / alert.
Depression
requesting to add back seroquel
-monitor qtc closely
DVT Prophylaxis: Lovenox
Code Status: Full
Anticipated Discharge: 24 - 48 hours
Subjective/Interval History
-
Date of Service: October 07, 2023
No acute events, still hyponatremic
Objective Data
-
Labs:
Laboratory Results
10/07/23
04:46
WBC 4.6 L
Hgb 10.1 L
Hct 29.7 L
Plt Count 199 D
Sodium 130 L
Potassium 4.5
Chloride 104
Carbon Dioxide 21 L
BUN 13
Creatinine 0.6 L
Glucose 91
Calcium 9.1
Vital Signs:
Vital Signs
Temp Pulse Resp BP Pulse Ox
97.7 F 71 10 116/68 98
10/07/23 11:44 10/07/23 09:00 10/07/23 08:00 10/07/23 04:40 10/07/23 09:00
I&O
10/06/23 10/07/23 10/08/23
06:59 06:59 06:59
Intake Total 1110 / 1110 2520 / 2520 450 / 450
Output Total 3130 / 3130 2900 / 2900
Balance -2020 / -2020 -380 / -380 450 / 450
Review of Systems
-
History Source: Patient
All other systems: Not reviewed unless documented
Data Reviewed
-
CT Scan: Image personally visualized and interpreted and Report Reviewed by me
MRI: Report Reviewed by me
Labs: Labs Reviewed by me
--- NOTE | 2023-10-07 16:05 | PTCARENOTE ---
No change in patient's assessment. Patient resting.
[2023-10-07 17:30] VITALS: BP 130/78
[2023-10-07] MEDS: LOVENOX 40 MG SC (17:41)
--- NOTE | 2023-10-07 17:47 | PTCARENOTE ---
pt transferred from ICU to 2130 this afternoon. pt brought down in wheelchair with two guards and nurse. pt received SC lovenox for this nurse and asked for prn tylenol for whole body aches. pt took pills whole with water. dinner tray on its way up.
pt previously here and is aware of call light system and how to order meals. pt has no questions at this time
[2023-10-07 19:48] VITALS: BP 108/64
[2023-10-07] MEDS: SEROQUEL 25 MG PO (21:53)
[2023-10-07 23:30] VITALS: BP 108/60
[2023-10-08 03:25] VITALS: BP 106/70
[2023-10-08 05:35] VITALS: BMI 21.3
[2023-10-08 07:20] VITALS: BP 111/74
[2023-10-08 07:35] LABS: Blood Urea Nitrogen 13 mg/dl (9-20); Calcium 9.3 mg/dl (8.4-10.2); Carbon Dioxide 29 mmol/L (22-30); Chloride 106 mmol/L (98-107); Estimated Creatinine Clearance > 125 ml/min; Glucose 80 mg/dl (70-99); Potassium 4.9 mmol/L (3.5-5.1); Sodium 137 mmol/L (135-145); eGFR > 60.00
[2023-10-08] MEDS: SUBUTEX 16 MG SL (08:19)
--- NOTE | 2023-10-08 10:15 | W.PN.NEPH.PH ---
Today's Communication / Plan
-
Add salt tablet
Assessment/Plan
-
Impression:
Hyponatremia with seizure
Polysubstance abuse
Left lower leg cellulitis currently on amoxicillin and Bactrim
Plan:
-Maintain fluid restriction-reinforced
-Add salt tablets as patient typically hypotensive in setting of
-follow BMP
-follow UOP
-samsca was given yesterday with good efficacy as serum sodium up to 137
-
-
Date of Service: October 08, 2023
CC / HPI / ROS
-
Chief Complaint:
Hyponatremia
History of Present Illness:
Na 137 after Samsca provided on 10/07/2023
BPs stable
good UOP
Review of Systems:
no CP/SOB
Labs
-
Labs:
WBC 4.6 10^3/uL (4.8-10.8) L 10/07/23 04:46
RBC 3.94 10^6/uL (4.70-6.10) L 10/07/23 04:46
Hgb 10.1 g/dL (13.0-18.0) L 10/07/23 04:46
Hct 29.7 % (39.0-52.0) L 10/07/23 04:46
Plt Count 199 10^3/uL (130-400) D 10/07/23 04:46
Sodium 137 mmol/L (135-145) 10/08/23 06:48
Potassium 4.9 mmol/L (3.5-5.1) 10/08/23 06:48
Chloride 106 mmol/L (98-107) 10/08/23 06:48
Carbon Dioxide 29 mmol/L (22-30) 10/08/23 06:48
BUN 13 mg/dl (9-20) 10/08/23 06:48
Creatinine 0.5 mg/dL (0.7-1.3) L 10/08/23 06:48
eGFR > 60.00 10/08/23 06:48
Glucose 80 mg/dl (70-99) 10/08/23 06:48
Calcium 9.3 mg/dl (8.4-10.2) 10/08/23 06:48
Phosphorus 5.1 mg/dl (2.5-4.5) H 10/07/23 04:46
Albumin 3.1 g/dl (3.5-5.0) L 10/05/23 06:30
Physical Exam
-
Vital Signs:
Vital Signs
Temp Pulse Resp BP Pulse Ox
98.3 F 68 16 111/74 99
10/08/23 07:20 10/08/23 07:20 10/08/23 07:20 10/08/23 07:20 10/08/23 07:20
Cardiovascular:: Regular rate and rhythm
Extremity Edema:: None: Bilateral:
--- NOTE | 2023-10-08 11:09 | CM ---
Reviewed the chart notes and spoke with nurse Law at the [facility]. Per Thanh, new medications need only be listed on the discharge instructions and they will have the medication ordered by the jail physician and jail pharmacy.
Plan: Return to [facility] today. [facility] to provide transportation.
Call report to: [phone]
Fax report to: [phone]
[2023-10-08 11:35] VITALS: BP 102/64
--- NOTE | 2023-10-08 12:02 | W.PN.HOSP.TC ---
Addendum entered and electronically signed by Alfredo Padilla MD 10/10/23 17:33:
[id number]
Original Note:
Today's Communication/Plan
-
salt tabs
free water restriction
seroquel
f/u bmp, lfts in 3-5 days
F/u PCP, Psych, +/- nephro outpatient
Assessment / Plan
Assessment / Plan
Physical Exam
General: Other (43y M appears older than stated age. )
HEENT: Other (Extremely poor dentition. Laceration to the R tongue with some evidence of bleeding.)
Respiratory: Clear; No Wheezes, Rales or Rhonchi
Cardiac: S1/S2 and Regular Rhythm; No Murmur
GI: Soft, Non Tender, Non Distended and Normal Bowel Sounds
Musculoskeletal: No Clubbing, No Cyanosis and Other (LLE appears significantly improved from prior.)
Neuro: Sedated
A/P: Patient is a 43y M with PMH significant for substance abuse who [facility] for evaluation of seizure activity.
Seizure Activity
Lactic Acidosis secondary to the above
Post-Ictal Agitation secondary to the above
�Most likely secondary to hyponatremia
-appreciate Neuro, Nephro recs
-EEG: mild diffuse cerebral dysfunction with superimposed moderate to severe bursts of diffuse dysfunction, nonspecific in etiology. This can be seen after seizure. Diffuse excess beta activity can be seen due to drug effect.
- MRI brain with no obvious acute pathology
-Fix metabolic derangements
-Speech eval, can tolerate PO
Severe Hyponatremia
- Na on arrival was 113
- s/p Tolvaptan
- follow-up nephrology recommendations during prior admission seemed to have a plateau around 125 - increased after Samsca dose.
- ? worsening hyponatremia due to Bactrim which he was taking for cellulitis.
- Hold further abx.
- Follow for clinical improvement coincident with improvement in hyponatremia.
- tolerating PO - 1200 cc fluid restriction
� s/p samsca -improved
-Salt tabs started
-F/u BMP in 3-5 days
Recent LLE Cellulitis
- Remains on amoxicillin and Bactrim - completed
- Will hold further abx as noted above.
- Appears significantly improved from prior.
- Follow for any new changes.
Polysubstance Abuse
- Patient with prior history of IVDA and intranasal Fentanyl use.
-UDS pos for buprenorphine and benzos
#Transaminitis
-possibly 2/2 to abx v seizure
-trending down - improved
-ctm
Hypomagnesemia
� Monitor and replete
Hypovitaminosis D
- Resume Vit D supplementation once patient awake / alert.
Depression
requesting to add back seroquel
-monitor qtc closely
F/u psychiatry outpatient
DVT Prophylaxis: Lovenox
Code Status: Full
More than 30 minutes spent in discharge including
Final examination of the patient
Summarizing hospital stay
Instructions for continuing care to all relevant caregivers
Preparation of discharge records, prescriptions, and referral forms
Total time spent (35 in minutes):
Anticipated Discharge: Today
Subjective/Interval History
-
Date of Service: October 08, 2023
samsca improved Na; added sa;lt tabs; no acute events overnight
Objective Data
-
Labs:
Laboratory Results
10/08/23
06:48
Sodium 137
Potassium 4.9
Chloride 106
Carbon Dioxide 29
BUN 13
Creatinine 0.5 L
Glucose 80
Calcium 9.3
Vital Signs:
Vital Signs
Temp Pulse Resp BP Pulse Ox
98.3 F 68 16 111/74 99
10/08/23 07:20 10/08/23 07:20 10/08/23 07:20 10/08/23 07:20 10/08/23 10:36
I&O
10/07/23 10/08/23 10/09/23
06:59 06:59 06:59
Intake Total 2520 / 2520 1050 / 1050
Output Total 2900 / 2900 1725 / 1725
Balance -380 / -380 -675 / -675
Review of Systems
-
History Source: Patient
All other systems: Not reviewed unless documented
Data Reviewed
-
CT Scan: Image personally visualized and interpreted and Report Reviewed by me
MRI: Report Reviewed by me
Labs: Labs Reviewed by me
--- NOTE | 2023-10-08 12:14 | W.DS.TRANS ---
DC Summary - [employer]
-
Discharge Instructions:
Discharge Diagnosis/Procedures Severe Hyponatremia
Seizure Activity
Diet Restrict fluids to 48 oz
Activity As tolerated
Blood Work bmp in 3-5 days
Instructions:
Stand-Alone Forms:
Changes to Home Medications: Yes
Discharge Medications:
DC Medications w/original date entered in [employer]
buprenorphine HCl 8 mg sublingual tablet 16 mg sublingual DAILY MAINTENANCE 10/04/23
cholecalciferol (vitamin D3) 25 mcg (1,000 unit) tablet (Vitamin D3) 25 mcg PO DAILY Supplement 10/04/23
ibuprofen 200 mg tablet (Advil) 400 mg PO BIDPRN PRN mild pain 10/04/23
quetiapine 25 mg tablet 25 mg PO HS #0 tabs 10/08/23
sodium chloride 1,000 mg soluble tablet 1,000 mg PO BID #0 tabs 10/08/23
Home Medication Changes
quetiapine 25 mg tablet 25 mg PO HS #0 tabs 10/08/23
sodium chloride 1,000 mg soluble tablet 1,000 mg PO BID #0 tabs 10/08/23
Pending Results: No
== END 2023-10-08 13:33 | DRG 641 ==
LOC: 2 NORTH 06:34
PROVIDERS: Internal Medicine Critical Care Medicine; Specialist; ADMITTING PHYSICIAN Hospitalist; ATTENDING PHYSICIAN Internal Medicine; CONSULT PHYSICIAN Internal Medicine Pulmonary Disease; CONSULT PHYSICIAN Psychiatry & Neurology Neurology; CONSULT PHYSICIAN Specialist; EMERGENCY PHYSICIAN Emergency Medicine
DX: E87.1 Hypo-osmolality and hyponatremia (principal); L03.116 Cellulitis of left lower limb; E87.20 Acidosis, unspecified; R45.1 Restlessness and agitation; R56.9 Unspecified convulsions; F11.10 Opioid abuse, uncomplicated; F17.210 Nicotine dependence, cigarettes, uncomplicated; F19.10 Other psychoactive substance abuse, uncomplicated; T36.8X5A Adverse effect of other systemic antibiotics, initial encounter; E55.9 Vitamin D deficiency, unspecified; R74.01 Elevation of levels of liver transaminase levels; G93.89 Other specified disorders of brain; F32.A Depression, unspecified
CPT/HCPCS: 70450; 70553; 80048; 80051; 80053; 80076; 80306; 80307; 82077; 82550; 82570; 83605; 83735; 83935; 84100; 84145; 84295; 84300; 84439; 84443; 84484; 85025; 85027; 87040; 93005; 95813; 96361; 96372; 96374; 96375; 99291; A9575; J2358